=== PATIENT | male | born 1950 | race Caucasian/White ===

== ENCOUNTER → 2016-08-05 | Outpatient (CLI) | payer MEDICARE, OTHER ==
--- NOTE | 2016-08-11 00:26 | ECWPNPC ---
PATIENT NAME: JUAN VELEZ : 1950 GENDER: MALE VISIT DATE: 08/05/2016 DISCHARGE DATE: 08/05/16924 VISIT LOCKED DATE TIME: PHYSICIAN: CHELLE HSIEH RESOURCE: CHELLE HSIEH REASON FOR APPOINTMENT 1. FOLLOWUP-BACK HISTORY OF PRESENT ILLNESS HISTORY OF PRESENT ILLNESS: HERE FOR ROUTINE F/U OF CHRONIC LBP .DOING VERY WELL.RATING PAIN VAS 2/10.REPORTS INTERMITTENT PAIN W LIFTING. PAIN THE PATIENT DESCRIBES THE PAIN... FALL RISK SCREENING: SCREENING :NO FALLS IN THE PAST YEAR CURRENT MEDICATIONS TAKING LISINOPRIL 20 20 MG TABLET 1 TAB ORAL BID TAKING OMEPRAZOLE 20MG _ TABLET ORAL ONCE DAILY TAKING FISH OIL 1000 MG CAPSULE 1 CAPSULE ORALLY TWICE A DAY TAKING ALEVE 220 MG CAPSULE 2 TABS ORALLY TWICE A DAY NEEDED TAKING AMLODIPINE BESYLATE 10 MG TABLET 1 TABLET ORALLY ONCE A DAY TAKING METOPROLOL SUCCINATE ER 25 MG TABLET EXTENDED RELEASE 24 HOUR 1 TABLET ORALLY ONCE A DAY TAKING HYDROCHLOROTHIAZIDE 12.5 MG CAPSULE 1 CAPSULE ORALLY ONCE A DAY NOT-TAKING TRAMADOL HCL 50 MG TABLET ORALLY DIRECTED MEDICATION LIST REVIEWED AND RECONCILED WITH THE PATIENT PAST MEDICAL HISTORY HIGH BLOOD PRESSURE REFLUX SOCIAL HISTORY TOBACCO USE ARE YOU A:NONSMOKER LEARNING BARRIERS / SPECIAL NEEDS ORIENTED TO PLAN OF CARE: PATIENT, PAIN MANAGEMENT PATIENT, ORIENTED TO PLAN OF CARE: PATIENT, PAIN MANAGEMENT PATIENT. NEW PATIENT PAIN DIARY TODAY'S VISITNOTES FROM 0-10, WHAT LEVEL IS YOUR PAIN TODAY?0 PAIN CLINIC PFS, CLERGY, PUBLIC HEALTH REFERRALS PFS REFERRAL NEEDED?NO CLERGY REFERRAL NEEDED?NO PUBLIC HEALTH REFERRAL NEEDED?NO WAS THE PROVIDER NOTIFIED OF ANY PERTINENT INFO?NO PFS REFERRAL NEEDED?NO CLERGY REFERRAL NEEDED?NO PUBLIC HEALTH REFERRAL NEEDED?NO WAS THE PROVIDER NOTIFIED OF ANY PERTINENT INFO?NO REVIEW OF SYSTEMS CONSTITUTIONAL: ANY CHANGE IN YOUR MEDICAL CONDITION? NO . CHILLS NO . FEVER NO . INFECTION: DO YOU HAVE NEW INFECTIONS? NO . DO YOU HAVE HISTORY OF MRSA? NO . MUSCULOSKELETAL: ANY NEW PATTERNS OF PAIN OR NUMBNESS? NO . GASTROENTEROLOGY: ANY NEW CHANGE IN BOWEL CONTROL? NO . GENITOURINARY: ANY NEW CHANGE IN BLADDER CONTROL? NO . IS THERE A CHANCE YOU COULD BE ? NO . HEMATOLOGY/LYMPH: DO YOU TAKE ANY BLOOD THINNERS? (FOR EXAMPLE- COUMADIN, PLAVIX, AGGRENOX, PLATEL, PRADAXA, OR XARELTO) NO . WHEN WAS YOUR LAST DOSE? DATE: TIME: . NEUROLOGY: HAVE YOU FALLEN IN THE PAST 6 MONTHS? NO . ANY NEW EXTREMITY NUMBNESS OR WEAKNESS? NO . CARDIOLOGY: DO YOU HAVE A PACEMAKER OR DEFIBRILLATOR? YES 2 LEAD PACER . RESPIRATORY: HAVE YOU BEEN SICK IN THE PAST WEEK? NO . FEVER NO . FLU LIKE SYMPTOMS? NO . COUGH NO . INTEGUMENTARY: DO YOU HAVE ANY RASHES OR OPEN SORES? NO . ALLERGIC/IMMUNO: ARE YOU ALLERGIC TO SHELLFISH OR IV DYE? NO . ANY NEW ALLERGIES? NO . PSYCHIATRIC: DO YOU HAVE THOUGHTS OF HURTING YOURSELF OR SOMEONE ELSE? NO . ARE YOU ABUSED, NEGLECTED, OR IN AN UNSAFE ENVIRONMENT? NO . ENDOCRINOLOGY: ARE YOU DIABETIC? NO . OTHER: DO YOU NEED ANY PRESCRIPTIONS? NO . IF YES, PLEASE LIST: ____ . ANY NEW PROBLEMS WITH YOUR MEDICATIONS? NO . WHEN DID YOU LAST EAT? ____ . WHEN DID YOU LAST DRINK? ____ . WHAT DID YOU LAST DRINK? ____ . NAME OF PERSON DRIVING YOU HOME? ____ . DO YOU HAVE ANY OTHER QUESTIONS OR CONCERNS NO . REVIEWED BY: PROVIDER: CHELLE LEIVA . VITAL SIGNS WT 172 LBS, HT 69 IN, BMI 25.40 INDEX, BP 116/77 MM HG, HR 68 /MIN, RR 16 /MIN, TEMP 97.3 F, OXYGEN SAT % 96, NA INITIALS TL 0849, REVIEWED BY: KG. EXAMINATION GENERAL EXAMINATION: HEENT:HEAD:, NORMOCEPHALIC, EYES:, EYES NORMAL, NOSE:, NOSE CLEAR, THROAT: NORMAL. LUNGS:LUNG SOUNDS ARE CLEAR. HEART:HEART RATE REGULAR. ABDOMEN:SOFT AND NOT TENDER, NON-DISTENDED. MUSCULOSKELETAL:*. LUMBAR SACRAL SPINEMUSCLE STRENGTH TESTING 5/5 BILATERAL, , PALPATION: NEGATIVE FOR PAIN OVER L/S SPINE. NEGATIVE FOR PAIN OVER L/S PARSPINALS. SKIN:NORMAL, NO RASH. NEUROLOGIC EXAM:ALERT AND ORIENTED X 3, DTRS 1-2+ IN ALL 4 EXTREMITIES, DENIES UPPER EXTREMETIES SENSORY LOSS, DENIES LOWER EXTREMETIES SENSORY LOSS. ASSESSMENTS MYOFASCIAL PAIN - M79.1 (PRIMARY) CHRONIC LEFT-SIDED LOW BACK PAIN WITHOUT SCIATICA - M54.5 SPONDYLOSIS OF LUMBAR REGION WITHOUT MYELOPATHY OR RADICULOPATHY - M47.816 FOLLOW UP PT WILL CALL ELECTRONICALLY SIGNED BY ABBIE SANCHEZ ON 08/05/2016 AT 09:24 AM EST DISCLAIMER : THIS IS A VISIT SUMMARY EXTRACTED FROM THE [employer] CHART. IT IS NOT A COPY OF THE [employer] PROGRESS NOTE. REY
== END ==
LOC: M PAIN 08:40
PROVIDERS: ATTEND Nurse Practitioner Family
DX: Z09 Encounter for follow-up examination after completed treatment for conditions other than malignant neoplasm (principal); M79.1 Myalgia; G89.29 Other chronic pain; M54.5 Low back pain; M47.816 Spondylosis without myelopathy or radiculopathy, lumbar region; I10 Essential (primary) hypertension; K21.9 Gastro-esophageal reflux disease without esophagitis; Z79.1 Long term (current) use of non-steroidal anti-inflammatories (NSAID); Z79.899 Other long term (current) drug therapy

== ENCOUNTER → 2016-09-24 | Outpatient (CLI) | payer OTHER ==
--- NOTE | 2016-09-24 23:59 | ECWPNPC ---
PATIENT NAME: JUAN VELEZ : 1950 GENDER: MALE VISIT DATE: 09/24/2016 DISCHARGE DATE: 09/24/16 1059 VISIT LOCKED DATE TIME: PHYSICIAN: CHELLE HSIEH RESOURCE: CHELLE HSIEH REASON FOR APPOINTMENT 1. BACK HISTORY OF PRESENT ILLNESS HISTORY OF PRESENT ILLNESS: HERE ON URGENT BASIS FOR 3 WEEK HX OF INCREASING LBP.PAIN AGGREVATED BY CERTAIN MOVEMENTS.PAIN IS WORSE IN AFTERNOON.PAIN RELIEVED SOMEWHAT WITH APPLICATION OF HEAT AND ADVIL.DESCRIBES PAIN INTERMITTENT LEFT LOW BACK STABBING AND SHOOTING.RATING PAIN VAS 7/10. PAIN THE PATIENT DESCRIBES THE PAIN... FALL RISK SCREENING: SCREENING :NO FALLS IN THE PAST YEAR CURRENT MEDICATIONS TAKING LISINOPRIL 20 20 MG TABLET 1 TAB ORAL BID TAKING OMEPRAZOLE 20MG _ TABLET ORAL ONCE DAILY TAKING FISH OIL 1000 MG CAPSULE 1 CAPSULE ORALLY TWICE A DAY TAKING ALEVE 220 MG CAPSULE 2 TABS ORALLY TWICE A DAY NEEDED TAKING AMLODIPINE BESYLATE 10 MG TABLET 1 TABLET ORALLY ONCE A DAY TAKING METOPROLOL SUCCINATE ER 25 MG TABLET EXTENDED RELEASE 24 HOUR 1 TABLET ORALLY ONCE A DAY TAKING HYDROCHLOROTHIAZIDE 12.5 MG CAPSULE 1 CAPSULE ORALLY ONCE A DAY TAKING TRAVATAN TAKING OPHTHALMIC IRRIGATION SOLUTION - SOLUTION OPHTHALMIC NOT-TAKING TRAMADOL HCL 50 MG TABLET ORALLY DIRECTED MEDICATION LIST REVIEWED AND RECONCILED WITH THE PATIENT PAST MEDICAL HISTORY HIGH BLOOD PRESSURE REFLUX SOCIAL HISTORY GENERAL: TOBACCO USE ARE YOU A:NONSMOKER LEARNING BARRIERS / SPECIAL NEEDS ORIENTED TO PLAN OF CARE: PATIENT, PAIN MANAGEMENT PATIENT, ORIENTED TO PLAN OF CARE: PATIENT, PAIN MANAGEMENT PATIENT. NEW PATIENT PAIN DIARY TODAY'S VISITNOTES FROM 0-10, WHAT LEVEL IS YOUR PAIN TODAY?0 PAIN CLINIC PFS, CLERGY, PUBLIC HEALTH REFERRALS PFS REFERRAL NEEDED?NO CLERGY REFERRAL NEEDED?NO PUBLIC HEALTH REFERRAL NEEDED?NO WAS THE PROVIDER NOTIFIED OF ANY PERTINENT INFO?NO PFS REFERRAL NEEDED?NO CLERGY REFERRAL NEEDED?NO PUBLIC HEALTH REFERRAL NEEDED?NO WAS THE PROVIDER NOTIFIED OF ANY PERTINENT INFO?NO REVIEW OF SYSTEMS CONSTITUTIONAL: ANY CHANGE IN YOUR MEDICAL CONDITION? [place] /GOING TO [facility] TOMORROW FOR LASER SURGERY . RECENT ILLNESS DENIES . CHILLS NO . FEVER NO . WEIGHT LOSS DENIES . INFECTION: DO YOU HAVE NEW INFECTIONS? NO . DO YOU HAVE HISTORY OF MRSA? NO . MUSCULOSKELETAL: ANY NEW PATTERNS OF PAIN OR NUMBNESS? NO . GASTROENTEROLOGY: ANY NEW CHANGE IN BOWEL CONTROL? NO . GENITOURINARY: ANY NEW CHANGE IN BLADDER CONTROL? NO . IS THERE A CHANCE YOU COULD BE ? NO . HEMATOLOGY/LYMPH: DO YOU TAKE ANY BLOOD THINNERS? (FOR EXAMPLE- COUMADIN, PLAVIX, AGGRENOX, PLATEL, PRADAXA, OR XARELTO) NO . WHEN WAS YOUR LAST DOSE? DATE: TIME: . NEUROLOGY: HAVE YOU FALLEN IN THE PAST 6 MONTHS? NO . ANY NEW EXTREMITY NUMBNESS OR WEAKNESS? NO . CARDIOLOGY: DO YOU HAVE A PACEMAKER OR DEFIBRILLATOR? YES . CHEST PAIN DENIES . SHORTNESS OF BREATH DENIES . RESPIRATORY: HAVE YOU BEEN SICK IN THE PAST WEEK? NO . FEVER NO . FLU LIKE SYMPTOMS? NO . COUGH NO, DENIES . SHORTNESS OF BREATH DENIES . INTEGUMENTARY: DO YOU HAVE ANY RASHES OR OPEN SORES? NO . ALLERGIC/IMMUNO: ARE YOU ALLERGIC TO SHELLFISH OR IV DYE? NO . ANY NEW ALLERGIES? NO . PSYCHIATRIC: DO YOU HAVE THOUGHTS OF HURTING YOURSELF OR SOMEONE ELSE? NO . ARE YOU ABUSED, NEGLECTED, OR IN AN UNSAFE ENVIRONMENT? NO . ENDOCRINOLOGY: ARE YOU DIABETIC? NO . OTHER: DO YOU NEED ANY PRESCRIPTIONS? NO . IF YES, PLEASE LIST: ____ . ANY NEW PROBLEMS WITH YOUR MEDICATIONS? NO . WHEN DID YOU LAST EAT? ____ . WHEN DID YOU LAST DRINK? ____ . WHAT DID YOU LAST DRINK? ____ . NAME OF PERSON DRIVING YOU HOME? ____ . DO YOU HAVE ANY OTHER QUESTIONS OR CONCERNS NO . REVIEWED BY: PROVIDER: CHELLE LEIVA . VITAL SIGNS WT 175 LBS, HT 69 IN, BMI 25.84 INDEX, BP 145/84 MM HG, HR 63 /MIN, RR 16 /MIN, TEMP 97.0 F, OXYGEN SAT % 97, NA INITIALS TL 1011. EXAMINATION GENERAL EXAMINATION: LUNGS:LUNG SOUNDS ARE CLEAR. HEART:HEART RATE REGULAR. MUSCULOSKELETAL:*, MUSCLE STRENGTH TESTING 5/5 BILATERAL LOWER EXTREMITIES., PALPATION: POSITIVE FOR PAIN OVER LEFT L4/5-L5/S1 FACET. POSITIVE FOR PAIN OVER LEFT L/S PARASPINALS.. DIAGNOSTIC:MRI L/S [id number]--REVIEWED.. ASSESSMENTS CHRONIC LEFT-SIDED LOW BACK PAIN WITHOUT SCIATICA - M54.5 (PRIMARY) SPONDYLOSIS OF LUMBAR REGION WITHOUT MYELOPATHY OR RADICULOPATHY - M47.816 TREATMENT CHRONIC LEFT-SIDED LOW BACK PAIN WITHOUT SCIATICA LUMBAR FACET CHELLE CASILLAS 09/24/2016 10:51:35 AM > LEFT L4/5-L5/S1-THERAPEUTIC FACET BLOCK SPONDYLOSIS OF LUMBAR REGION WITHOUT MYELOPATHY OR RADICULOPATHY LUMBAR FACET THERAPEUTICBARCHELLE ANDRADE 09/24/2016 10:51:35 AM > LEFT L4/5-L5/S1-THERAPEUTIC FACET BLOCK PROCEDURE CODES FA211 ESTABILISHED PATIENT [facility] FACILITY CHARGE DISPOSITION & COMMUNICATION FOLLOW UP 2WK POST (REASON: LEFT L4/5-L5/S1 THERAPEUTIC FACET BLOCK) ELECTRONICALLY SIGNED BY ABBIE SANCHEZ ON 09/24/2016 AT 11:46 AM EST DISCLAIMER : THIS IS A VISIT SUMMARY EXTRACTED FROM THE [employer] CHART. IT IS NOT A COPY OF THE [employer] PROGRESS NOTE. REY
== END ==
LOC: M PAIN 09:40
PROVIDERS: ATTEND Nurse Practitioner Family
DX: Z09 Encounter for follow-up examination after completed treatment for conditions other than malignant neoplasm (principal); G89.29 Other chronic pain; M54.5 Low back pain; M47.816 Spondylosis without myelopathy or radiculopathy, lumbar region; I10 Essential (primary) hypertension; K21.9 Gastro-esophageal reflux disease without esophagitis; H40.9 Unspecified glaucoma; Z79.1 Long term (current) use of non-steroidal anti-inflammatories (NSAID); Z79.899 Other long term (current) drug therapy

== ENCOUNTER → 2016-10-16 | Outpatient (CLI) | payer OTHER ==
[~2016-10-16] MED LIST: BUPIVACAINE HCL 0.25% 30 ML VIAL As Ordered ONE; ISOVUE-M 300 61% 15ML VIAL (Q9967) As Ordered ONE; LIDOCAINE 1% SDV INJ 30 ML VIAL As Ordered ONE; TRIAMCINOLONE ACETONIDE SUSP 40 MG/ML VIAL (J3301) As Ordered ONE
--- NOTE | 2016-10-16 14:05 | REP ---
PARTIAL LUMBAR SPINE SERIES: Three views. HISTORY: Facet block for pain. 15 seconds of fluoroscopy time is reported. FINDINGS: A sequence of three fluoroscopically obtained last image hold spot radiographs of the lumbar spine document needle position and contrast injection for facet injection procedure. Signed by Shahab Barba MD 10/16/2016 02:20 P
--- NOTE | 2016-10-22 02:04 | ECWPNPC ---
PATIENT NAME: JUAN VELEZ : 1950 GENDER: MALE VISIT DATE: 10/16/2016 DISCHARGE DATE: 10/16/16 1152 VISIT LOCKED DATE TIME: PHYSICIAN: SAURABH JACOBS RESOURCE: SAURABH JACOBS REASON FOR APPOINTMENT 1. THERAPEUTIC FACET HISTORY OF PRESENT ILLNESS HISTORY OF PRESENT ILLNESS: PAIN THE PATIENT DESCRIBES THE PAIN... FALL RISK SCREENING: SCREENING :NO FALLS IN THE PAST YEAR CURRENT MEDICATIONS TAKING LISINOPRIL 20 20 MG TABLET 1 TAB ORAL BID, NOTES: 10-16-16629 TAKING OMEPRAZOLE 20MG _ TABLET ORAL ONCE DAILY, NOTES: 10-16-16629 TAKING FISH OIL 1000 MG CAPSULE 1 CAPSULE ORALLY TWICE A DAY, NOTES: 10-16-16629 TAKING ALEVE 220 MG CAPSULE 2 TABS ORALLY TWICE A DAY NEEDED, NOTES: COUPLE DAYS AGO TAKING AMLODIPINE BESYLATE 10 MG TABLET 1 TABLET ORALLY ONCE A DAY, NOTES: 10-15-162099 TAKING METOPROLOL SUCCINATE ER 25 MG TABLET EXTENDED RELEASE 24 HOUR 1 TABLET ORALLY ONCE A DAY, NOTES: 10-16-16629 TAKING HYDROCHLOROTHIAZIDE 12.5 MG CAPSULE 1 CAPSULE ORALLY ONCE A DAY, NOTES: 10-16-16629 TAKING TRAVATAN , NOTES: 10-16-16629 TAKING OPHTHALMIC IRRIGATION SOLUTION - SOLUTION OPHTHALMIC , NOTES: 10-16-16629 NOT-TAKING TRAMADOL HCL 50 MG TABLET ORALLY DIRECTED MEDICATION LIST REVIEWED AND RECONCILED WITH THE PATIENT PAST MEDICAL HISTORY HIGH BLOOD PRESSURE REFLUX ALLERGIES N.K.D.A. SOCIAL HISTORY GENERAL: TOBACCO USE ARE YOU A:NONSMOKER LEARNING BARRIERS / SPECIAL NEEDS ORIENTED TO PLAN OF CARE: PATIENT, PAIN MANAGEMENT PATIENT, ORIENTED TO PLAN OF CARE: PATIENT, PAIN MANAGEMENT PATIENT. NEW PATIENT PAIN DIARY TODAY'S VISITNOTES FROM 0-10, WHAT LEVEL IS YOUR PAIN TODAY?0 PAIN CLINIC PFS, CLERGY, PUBLIC HEALTH REFERRALS PFS REFERRAL NEEDED?NO CLERGY REFERRAL NEEDED?NO PUBLIC HEALTH REFERRAL NEEDED?NO WAS THE PROVIDER NOTIFIED OF ANY PERTINENT INFO?NO PFS REFERRAL NEEDED?NO CLERGY REFERRAL NEEDED?NO PUBLIC HEALTH REFERRAL NEEDED?NO WAS THE PROVIDER NOTIFIED OF ANY PERTINENT INFO?NO REVIEW OF SYSTEMS CONSTITUTIONAL: ANY CHANGE IN YOUR MEDICAL CONDITION? NO . CHILLS NO . FEVER NO . INFECTION: DO YOU HAVE NEW INFECTIONS? NO . DO YOU HAVE HISTORY OF MRSA? NO . MUSCULOSKELETAL: ANY NEW PATTERNS OF PAIN OR NUMBNESS? NO . GASTROENTEROLOGY: ANY NEW CHANGE IN BOWEL CONTROL? NO . GENITOURINARY: ANY NEW CHANGE IN BLADDER CONTROL? NO . IS THERE A CHANCE YOU COULD BE ? NO . HEMATOLOGY/LYMPH: DO YOU TAKE ANY BLOOD THINNERS? (FOR EXAMPLE- COUMADIN, PLAVIX, AGGRENOX, PLATEL, PRADAXA, OR XARELTO) NO . WHEN WAS YOUR LAST DOSE? DATE: TIME: . NEUROLOGY: HAVE YOU FALLEN IN THE PAST 6 MONTHS? NO . ANY NEW EXTREMITY NUMBNESS OR WEAKNESS? NO . CARDIOLOGY: DO YOU HAVE A PACEMAKER OR DEFIBRILLATOR? YES, PACEMAKER YEAR AGO . RESPIRATORY: HAVE YOU BEEN SICK IN THE PAST WEEK? NO . FEVER NO . FLU LIKE SYMPTOMS? NO . COUGH NO . INTEGUMENTARY: DO YOU HAVE ANY RASHES OR OPEN SORES? NO . ALLERGIC/IMMUNO: ARE YOU ALLERGIC TO SHELLFISH OR IV DYE? NO . ANY NEW ALLERGIES? NO . PSYCHIATRIC: DO YOU HAVE THOUGHTS OF HURTING YOURSELF OR SOMEONE ELSE? NO . ARE YOU ABUSED, NEGLECTED, OR IN AN UNSAFE ENVIRONMENT? NO . ENDOCRINOLOGY: ARE YOU DIABETIC? NO . OTHER: DO YOU NEED ANY PRESCRIPTIONS? NO . IF YES, PLEASE LIST: ____ . ANY NEW PROBLEMS WITH YOUR MEDICATIONS? NO . WHEN DID YOU LAST EAT? 10-15-16 PM . WHEN DID YOU LAST DRINK? 10-16-16 0630 . WHAT DID YOU LAST DRINK? WATER . NAME OF PERSON DRIVING YOU HOME? MAURIZIO NICOLE . DO YOU HAVE ANY OTHER QUESTIONS OR CONCERNS NO . REVIEWED BY: PROVIDER: . VITAL SIGNS WT 175 LBS, HT 69 IN, BMI 25.84 INDEX, BP 128/83 MM HG, HR 95 /MIN, RR 16 /MIN, TEMP 98.3 F, OXYGEN SAT % 95%, NA INITIALS SC 09:21, REVIEWED BY: CM. ASSESSMENTS SPONDYLOSIS WITHOUT MYELOPATHY OR RADICULOPATHY, LUMBAR REGION - M47.816 (PRIMARY) SPONDYLOSIS WITHOUT MYELOPATHY OR RADICULOPATHY, LUMBOSACRAL REGION - M47.817 PROCEDURES PN LUMBAR FACET BLOCK THERAPEUTIC PRE PROCEDURE DIAGNOSIS : LUMBAR SPONDYLOSIS, LUMBOSACRAL SPONDYLOSIS POST PROCEDURE DIAGNOSIS : LUMBAR SPONDYLOSIS, LUMBOSACRAL SPONDYLOSIS PROCEDURE LEFT L4-L5 AND LEFT L5-S1 FACET THERAPEUTIC BLOCK SURGEON DR. SAURABH JACOBS PRESSURE VESSEL INSPECTOR NONE ANESTHESIA LOCAL PRE PROCEDURE NOTE THE PATIENT HAS A HISTORY OF CHRONIC LOW BACK PAIN. I EVALUATE THE PATIENT AND REVIEWED THE CHART. I WENT OVER THE RISKS, ALTERNATIVES, AND BENEFITS ASSOCIATED WITH THIS PROCEDURE. THE PATIENT WOULD LIKE TO PROCEED AND GIVE CONSENT TO PERFORMED THE PROCEDURE. THE PATIENT DENIES UNEXPLAINABLE WEIGHT LOSS, FEVER, CHILLS, OR NEW CHANGES IN URINARY OR BOWEL CONTROL DESCRIPTION OF PROCEDURE THE PATIENT WAS BROUGHT TO THE PROCEDURE ROOM AND PLACED IN THE PRONE POSITION. THE LUMBOSACRAL AREA WAS CLEANED WITH CHLORAPREP SOLUTION AND DRAPED ASEPTICALLY. THE PROCEDURE WAS DONE UNDER STERILE CONDITIONS. I CHECKED LATERALITY AND THE LEVEL WHERE THE PROCEDURE WAS GOING TO BE PERFORMED WITH THE PATIENT AND THE SUPPORTING STAFF AT THE MOMENT OF THE TIME OUT IN THE PROCEDURE ROOM. UNDER FLUOROSCOPIC GUIDANCE, THE TARGET POINT WAS SELECTED AT THE LEFT L4-L5 AND LEFT L5-S1 FACET JOINT. TARGET POINT WAS SELECTED AFTER LATERAL ROTATION AND TILT OF THE MAGNIFIER OF THE C-ARM. LIDOCAINE 0.5% WAS USED TO NUMB THE SKIN AND THE SUBCUTANEOUS TISSUE BELOW IT. SPINAL NEEDLES, 22-GAUGE, WERE ADVANCED UNDER FLUOROSCOPIC GUIDANCE AND FOLLOWING PATIENT FEEDBACK UNTIL THE TARGETS WERE TOUCHED. THE POSITION OF THE NEEDLES WAS VERIFIED WITH AP AND LATERAL VIEWS. AFTER PROPER POSITION OF THE NEEDLES WAS ACHIEVED, ISOVUE-M DYE 30% 0.1 ML WAS INJECTED SHOWING ADEQUATE SPREAD OF THE DYE. THEN A SOLUTION OF 1.9 ML OF BUPIVACAINE 0.125% OF KENALOG 10 MG WAS INJECTED AT EACH SITE. THERE WAS NO EVIDENCE OF BLOOD, PARESTHESIA OR CEREBROSPINAL FLUID DURING THE PROCEDURE. THE PATIENT WAS SENT TO THE RECOVERY ROOM. THE PATIENT WAS MOVING THE EXTREMITIES AND DOING WELL. THERE WAS NO COMPLICATION DURING THE PROCEDURE. FLUOROSCOPY TIME WAS 15 SECONDS POST PROCEDURE NOTE THE PATIENT WILL BE SEEN IN A FOLLOW UP IN THE NEXT FEW WEEKS. INSTRUCTIONS WERE GIVEN, QUESTIONS WERE ANSWERED, AND THE PATIENT EXPRESSED UNDERSTANDING AND AGREES WITH THE PLAN. INSTRUCTIONS WERE GIVEN, QUESTIONS WERE ANSWERED, PATIENT REPORTS UNDERSTANDING AND AGREES WITH THE PLAN. I, KERRY MENDEZ, DOCUMENTED THE ABOVE INFORMATION ACTING A SCRIBE FOR DR. JACOBS. I HAVE REVIEWED THE ABOVE DOCUMENT, WRITTEN BY KERRY MENDEZ SCRIBSushma AND I VERIFY THAT IT IS ACCURATE. DIAGNOSTIC IMAGING [facility] FACET BLOCK (PAIN)[id number] PROCEDURE CODES 52821 INJ PARAVERT F JNT L/S 1 LEV 36603 INJ PARAVERT F JNT L/S 2 LEV 6045F RADXPS IN END [id number] PXD DISPOSITION & COMMUNICATION FOLLOW UP 3 WEEKS ELECTRONICALLY SIGNED BY SAURABH JACOBS MD ON 10/21/2016 AT 05:26 PM EDT DISCLAIMER : THIS IS A VISIT SUMMARY EXTRACTED FROM THE [employer] CHART. IT IS NOT A COPY OF THE [employer] PROGRESS NOTE. MTDD
== END ==
LOC: M PAIN 09:00
PROVIDERS: ATTEND Anesthesiology
DX: G89.29 Other chronic pain (principal); M47.816 Spondylosis without myelopathy or radiculopathy, lumbar region; M47.817 Spondylosis without myelopathy or radiculopathy, lumbosacral region; Z79.899 Other long term (current) drug therapy; I10 Essential (primary) hypertension; K21.9 Gastro-esophageal reflux disease without esophagitis
CPT/HCPCS: 64493; 64494; J3301; Q9967

== ENCOUNTER → 2016-10-30 | Outpatient (CLI) | payer OTHER ==
--- NOTE | 2016-10-31 01:28 | ECWPNPC ---
PATIENT NAME: JUAN VELEZ : 1950 GENDER: MALE VISIT DATE: 10/30/2016 DISCHARGE DATE: 10/30/16950 VISIT LOCKED DATE TIME: PHYSICIAN: CHELLE HSIEH RESOURCE: CHELLE HSIEH REASON FOR APPOINTMENT 1. POST FACET HISTORY OF PRESENT ILLNESS HISTORY OF PRESENT ILLNESS: HERE FOR POST PROCEDURE F/U.HAD LEFT LUMBAR FACET BLOCK 10-16-16.HAD NO IMPROVEMENT POST PROCEDURE AND SOME AGGREVATION .RATING PAIN VAS 8/10.HAD A 4 DAY STAY IN ICU LAST MONTH FOR GI ISSUES DUE TO TAKING 12 ALEVE PER DAY.REVIEWED MRI L/S SPINE AND PREVIOUS PROCEDURES TRIALED.DESCRIBES LEFT LOW BACK SHARP AND STABBING PAIN.DISCUSSED TREATMENT OPTIONS. PAIN THE PATIENT DESCRIBES THE PAIN... FALL RISK SCREENING: SCREENING :NO FALLS IN THE PAST YEAR CURRENT MEDICATIONS TAKING LISINOPRIL 20 20 MG TABLET 1 TAB ORAL BID, NOTES: 10-16-16629 TAKING OMEPRAZOLE 20MG _ TABLET ORAL ONCE DAILY, NOTES: 10-16-16629 TAKING FISH OIL 1000 MG CAPSULE 1 CAPSULE ORALLY TWICE A DAY, NOTES: 10-16-16629 TAKING AMLODIPINE BESYLATE 10 MG TABLET 1 TABLET ORALLY ONCE A DAY, NOTES: 10-15-162099 TAKING METOPROLOL SUCCINATE ER 25 MG TABLET EXTENDED RELEASE 24 HOUR 1 TABLET ORALLY ONCE A DAY, NOTES: 10-16-16629 TAKING HYDROCHLOROTHIAZIDE 12.5 MG CAPSULE 1 CAPSULE ORALLY ONCE A DAY, NOTES: 10-16-16629 TAKING TRAVATAN 1 GTT EACH EYE TWICE DAILY, NOTES: 10-16-16629 NOT-TAKING ALEVE 220 MG CAPSULE 2 TABS ORALLY TWICE A DAY NEEDED, NOTES: NOT TAKING R/T GI DISCOMFORT NOT-TAKING TRAMADOL HCL 50 MG TABLET ORALLY DIRECTED DISCONTINUED OPHTHALMIC IRRIGATION SOLUTION - SOLUTION OPHTHALMIC , NOTES: 10-16-16629 MEDICATION LIST REVIEWED AND RECONCILED WITH THE PATIENT PAST MEDICAL HISTORY HIGH BLOOD PRESSURE REFLUX GLAUCOMA ALLERGIES N.K.D.A. SOCIAL HISTORY GENERAL: PAIN CLINIC PFS, CLERGY, PUBLIC HEALTH REFERRALS CLERGY REFERRAL NEEDED?NO WAS THE PROVIDER NOTIFIED OF ANY PERTINENT INFO?NO PFS REFERRAL NEEDED?NO PUBLIC HEALTH REFERRAL NEEDED?NO PATIENT: ____. REVIEW OF SYSTEMS CONSTITUTIONAL: ANY CHANGE IN YOUR MEDICAL CONDITION? NO . CHILLS NO . FEVER NO . INFECTION: DO YOU HAVE NEW INFECTIONS? NO . DO YOU HAVE HISTORY OF MRSA? NO . MUSCULOSKELETAL: ANY NEW PATTERNS OF PAIN OR NUMBNESS? NO . GASTROENTEROLOGY: ANY NEW CHANGE IN BOWEL CONTROL? NO . GENITOURINARY: ANY NEW CHANGE IN BLADDER CONTROL? NO . IS THERE A CHANCE YOU COULD BE ? NO . HEMATOLOGY/LYMPH: DO YOU TAKE ANY BLOOD THINNERS? (FOR EXAMPLE- COUMADIN, PLAVIX, AGGRENOX, PLATEL, PRADAXA, OR XARELTO) NO . WHEN WAS YOUR LAST DOSE? DATE: TIME: . NEUROLOGY: HAVE YOU FALLEN IN THE PAST 6 MONTHS? NO . ANY NEW EXTREMITY NUMBNESS OR WEAKNESS? NO . CARDIOLOGY: DO YOU HAVE A PACEMAKER OR DEFIBRILLATOR? YES . RESPIRATORY: HAVE YOU BEEN SICK IN THE PAST WEEK? NO . FEVER NO . FLU LIKE SYMPTOMS? NO . COUGH NO . INTEGUMENTARY: DO YOU HAVE ANY RASHES OR OPEN SORES? NO . ALLERGIC/IMMUNO: ARE YOU ALLERGIC TO SHELLFISH OR IV DYE? NO . ANY NEW ALLERGIES? NO . PSYCHIATRIC: DO YOU HAVE THOUGHTS OF HURTING YOURSELF OR SOMEONE ELSE? NO . ARE YOU ABUSED, NEGLECTED, OR IN AN UNSAFE ENVIRONMENT? NO . ENDOCRINOLOGY: ARE YOU DIABETIC? NO . OTHER: DO YOU NEED ANY PRESCRIPTIONS? NO . IF YES, PLEASE LIST: ____ . ANY NEW PROBLEMS WITH YOUR MEDICATIONS? NO . WHEN DID YOU LAST EAT? ____ . WHEN DID YOU LAST DRINK? ____ . WHAT DID YOU LAST DRINK? ____ . NAME OF PERSON DRIVING YOU HOME? ____ . DO YOU HAVE ANY OTHER QUESTIONS OR CONCERNS NO . REVIEWED BY: PROVIDER: CHELLE LEIVA . VITAL SIGNS WT 179 LBS, HT 69 IN, BMI 26.43 INDEX, BP 134/86 MM HG, HR 71 /MIN, RR 16 /MIN, TEMP 98.6 F, OXYGEN SAT % 94%, NA INITIALS SC09:02, REVIEWED BY: MLF. EXAMINATION GENERAL EXAMINATION: LUNGS:LUNG SOUNDS ARE CLEAR. HEART:HEART RATE REGULAR. MUSCULOSKELETAL:*, MUSCLE STRENGTH TESTING 5/5 BILATERAL LOWER EXTREMITIES., PALPATION: POSITIVE FOR PAIN OVER LEFT L4/5-L5/S1 FACET. POSITIVE FOR PAIN OVER LEFT L/S PARASPINALS.. DIAGNOSTIC:MRI L/S [id number]-REVIEWED.. 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 MATERIAL WAS PRINTED,LUMBAR EPIDURAL INJECTION: YOUR PROCEDURE MATERIAL WAS PRINTED, OPTION FOR EPIDURAL INJECTIONS WERE DISCUSSED WITH THE PATIENT. FDA CONCERNS AND WARNING WERE REVIEWED INCLUDING THE RISK OF BLEEDING, RISK OF INFECTION, RISK OF INCREASED PAIN OR NEURALGIA, AND RISK OF PARALYSIS. PATIENT'S QUESTIONS WERE ANSWERED AND HE/SHE WISHES TO MOVE FORWARD WITH EPIDURAL INJECTION., ISTOP REGISTRY REVIEWED AND DEMNOSTRATES COMPLLIANCE. BRINGS IN MEDICATIONS WHICH IS APPROPRIATE FOR WHAT WAS DISPENSED. RECENT URINE TOXICOLOGY REVIEWED. NO UNAUTHORIZED MEDICATIONS. NO ILLICIT SUBSTANCES AND PRESCRIBED MEDICATIONS WERE PRESENT. , RISKS AND BENEFITS OF NARCOTIC/OPIOD MEDICATIONS WERE REVIEWED WITH PATIENT - THIS INCLUDES BUT IS NOT LIMITED TO RISK OF DEPENDANCE/DEVELOPMENT OF ADDICTION, MOOD DISTURBANCE AND DEPRESSION, OSTEOPOROSIS, HORMONAL AND LABIDAL CHANGES, RESPIRATORY DEPRESSION AND . PATIENT IS ADVISED NOT TO DRIVE WHILE ON THESE MEDICATIONS. LUMBAR HERNIATED DISC CAUDAL/LUMBAR EPIDURALCHELLE HSIEH 10/30/2016 9:27:36 AM > L4/5/ [facility] PRE[facility]IC[facility] PA[facility] CLINIC TEACHING: MEDICATIONS HYDROCODONE/ACET PRINTED HANDOUT GIVEN/REVIEWED WITH PT.. PROCEDURE CODES FA211 ESTABILISHED PATIENT [facility] CHARGE DISPOSITION & COMMUNICATION FOLLOW UP 2WK POST (REASON: L4/5 LESI) ELECTRONICALLY SIGNED BY ABBIE SANCHEZ ON 10/30/2016 AT 01:30 PM EDT DISCLAIMER : THIS IS A VISIT SUMMARY EXTRACTED FROM THE [facility] CHART. IT IS NOT A COPY OF THE [facility] PROGRESS NOTE. REY
== END ==
LOC: M PAIN 08:40
PROVIDERS: ATTEND Nurse Practitioner Family
DX: M79.1 Myalgia (principal); M47.816 Spondylosis without myelopathy or radiculopathy, lumbar region; M51.26 Other intervertebral disc displacement, lumbar region; G89.29 Other chronic pain; Z79.899 Other long term (current) drug therapy; I10 Essential (primary) hypertension; K21.9 Gastro-esophageal reflux disease without esophagitis; H40.9 Unspecified glaucoma

== ENCOUNTER → 2016-11-19 | Outpatient (CLI) | payer OTHER ==
[~2016-11-19] MED LIST changes: -BUPIVACAINE HCL 0.25% 30 ML VIAL As Ordered ONE; -TRIAMCINOLONE ACETONIDE SUSP 40 MG/ML VIAL (J3301) As Ordered ONE; +methylPREDNISolone SUSP 40 MG/ML (DEPO-medrol) VIAL (J1030) As Ordered ONE
--- NOTE | 2016-11-19 17:56 | REP ---
FLUOROSCOPIC GUIDED SPINAL INJECTION: The films were reviewed with Dr. Campos. The patient has a history of back pain. The portable C-Arm is provided in the OR for Dr. Weir for fluoroscopic guidance. Three intraoperative fluoroscopic spot films were obtained for needle placement verification for lumbar epidural injection. The films are on the PACs system and are available for review. 31 seconds of fluoroscopy time was utilized for this procedure. Reviewed by LILLI Mendoza 11/20/2016 09:24 AEdited and Signed by Chalino Campos MD 11/21/2016 04:58 P
--- NOTE | 2016-11-25 00:10 | ECWPNPC ---
PATIENT NAME: JUAN VELEZ : 1950 GENDER: MALE VISIT DATE: 11/19/2016 DISCHARGE DATE: 11/19/16 1158 VISIT LOCKED DATE TIME: PHYSICIAN: SAURABH JACOBS RESOURCE: SAURABH JACOBS REASON FOR APPOINTMENT 1. LE HISTORY OF PRESENT ILLNESS HISTORY OF PRESENT ILLNESS: PAIN THE PATIENT DESCRIBES THE PAIN... FALL RISK SCREENING: SCREENING :NO FALLS IN THE PAST YEAR CURRENT MEDICATIONS TAKING LISINOPRIL 20 20 MG TABLET 1 TAB ORAL BID, NOTES: 11-19-16629 TAKING OMEPRAZOLE 20MG _ TABLET ORAL ONCE DAILY, NOTES: 11-19-16629 TAKING FISH OIL 1000 MG CAPSULE 1 CAPSULE ORALLY TWICE A DAY, NOTES: 11-19-16629 TAKING AMLODIPINE BESYLATE 10 MG TABLET 1 TABLET ORALLY ONCE A DAY, NOTES: 11-18-162099 TAKING METOPROLOL SUCCINATE ER 25 MG TABLET EXTENDED RELEASE 24 HOUR 1 TABLET ORALLY ONCE A DAY, NOTES: 11-19-16629 TAKING HYDROCHLOROTHIAZIDE 12.5 MG CAPSULE 1 CAPSULE ORALLY ONCE A DAY, NOTES: 11-19-16629 TAKING TRAVATAN 1 GTT EACH EYE TWICE DAILY, NOTES: 11-18-162099 TAKING NORCO 5-325 MG TABLET 1 TABLET NEEDED ORALLY EVERY 6 HRS PRN MDD4, NOTES: 11-17-16 NOT-TAKING ALEVE 220 MG CAPSULE 2 TABS ORALLY TWICE A DAY NEEDED, NOTES: NOT TAKING R/T GI DISCOMFORT DISCONTINUED TRAMADOL HCL 50 MG TABLET ORALLY DIRECTED MEDICATION LIST REVIEWED AND RECONCILED WITH THE PATIENT PAST MEDICAL HISTORY HIGH BLOOD PRESSURE REFLUX GLAUCOMA ALLERGIES N.K.D.A. SOCIAL HISTORY GENERAL: PAIN CLINIC PFS, CLERGY, PUBLIC HEALTH REFERRALS CLERGY REFERRAL NEEDED?NO WAS THE PROVIDER NOTIFIED OF ANY PERTINENT INFO?NO PFS REFERRAL NEEDED?NO PUBLIC HEALTH REFERRAL NEEDED?NO PATIENT: ____. REVIEW OF SYSTEMS CONSTITUTIONAL: ANY CHANGE IN YOUR MEDICAL CONDITION? NO . CHILLS NO . FEVER NO . INFECTION: DO YOU HAVE NEW INFECTIONS? NO . DO YOU HAVE HISTORY OF MRSA? NO . MUSCULOSKELETAL: ANY NEW PATTERNS OF PAIN OR NUMBNESS? NO . GASTROENTEROLOGY: ANY NEW CHANGE IN BOWEL CONTROL? NO . GENITOURINARY: ANY NEW CHANGE IN BLADDER CONTROL? NO . IS THERE A CHANCE YOU COULD BE ? NO . HEMATOLOGY/LYMPH: DO YOU TAKE ANY BLOOD THINNERS? (FOR EXAMPLE- COUMADIN, PLAVIX, AGGRENOX, PLATEL, PRADAXA, OR XARELTO) NO . WHEN WAS YOUR LAST DOSE? DATE: TIME: . NEUROLOGY: HAVE YOU FALLEN IN THE PAST 6 MONTHS? NO . ANY NEW EXTREMITY NUMBNESS OR WEAKNESS? NO . CARDIOLOGY: DO YOU HAVE A PACEMAKER OR DEFIBRILLATOR? YES, PACEMAKER . RESPIRATORY: HAVE YOU BEEN SICK IN THE PAST WEEK? NO . FEVER NO . FLU LIKE SYMPTOMS? NO . COUGH NO . INTEGUMENTARY: DO YOU HAVE ANY RASHES OR OPEN SORES? NO . ALLERGIC/IMMUNO: ARE YOU ALLERGIC TO SHELLFISH OR IV DYE? NO . ANY NEW ALLERGIES? NO . PSYCHIATRIC: DO YOU HAVE THOUGHTS OF HURTING YOURSELF OR SOMEONE ELSE? NO . ARE YOU ABUSED, NEGLECTED, OR IN AN UNSAFE ENVIRONMENT? NO . ENDOCRINOLOGY: ARE YOU DIABETIC? NO . OTHER: DO YOU NEED ANY PRESCRIPTIONS? YES . IF YES, PLEASE LIST: NORCO 5-325MG . ANY NEW PROBLEMS WITH YOUR MEDICATIONS? NO . WHEN DID YOU LAST EAT? 11-18-16 PM . WHEN DID YOU LAST DRINK? 11-19-16 0630 . WHAT DID YOU LAST DRINK? WATER . NAME OF PERSON DRIVING YOU HOME? BROOKE LOYA . DO YOU HAVE ANY OTHER QUESTIONS OR CONCERNS NO . REVIEWED BY: PROVIDER: . VITAL SIGNS WT 179 LBS, HT 69 IN, BMI 26.43 INDEX, BP 120/84 MM HG, HR 60 /MIN, RR 16 /MIN, TEMP 98.3 F, OXYGEN SAT % 97%, NA INITIALS SC 10:07, REVIEWED BY: CM. ASSESSMENTS INTERVERTEBRAL DISC DISORDERS WITH RADICULOPATHY, LUMBAR REGION - M51.16 (PRIMARY) PROCEDURES PRE PROCEDURE DIAGNOSIS LUMBAR RADICULOPATHY, LUMBAR DISC DISORDER WITH RADICULOPATHY POST PROCEDURE DIAGNOSIS LUMBAR RADICULOPATHY , LUMBAR DISC DISORDER WITH RADICULOPATHY PROCEDURE LUMBAR EPIDURAL STEROID INJECTION UNDER FLUOROSCOPIC GUIDANCE SURGEON DR. SAURABH JACOBS COMPREHENSIVE OPHTHALMOLOGIST NONE ANESTHESIA LOCAL PRE PROCEDURE NOTE THE PATIENT HAS A HISTORY OF CHRONIC LOW BACK PAIN. I EVALUATE THE PATIENT AND REVIEWED THE CHART. I WENT OVER THE RISKS, ALTERNATIVES, AND BENEFITS ASSOCIATED WITH THIS PROCEDURE. THE PATIENT WOULD LIKE TO PROCEED AND GIVE CONSENT TO PERFORMED THE PROCEDURE. THE PATIENT DENIES UNEXPLAINABLE WEIGHT LOSS, FEVER, CHILLS, OR NEW CHANGES IN URINARY OR BOWEL CONTROL. DESCRIPTION OF PROCEDURE THE PATIENT WAS BROUGHT TO THE PROCEDURE ROOM AND PLACED IN THE PRONE POSITION. THE LUMBOSACRAL AREA WAS CLEANED WITH BETADINE SOLUTION AND DRAPED ASEPTICALLY. THE PROCEDURE WAS DONE UNDER STERILE CONDITIONS. I CHECKED LATERALITY AND THE LEVEL WHERE THE PROCEDURE WAS GOING TO BE PERFORMED WITH THE PATIENT AND THE SUPPORTING STAFF AT THE MOMENT OF THE TIME OUT IN THE PROCEDURE ROOM. UNDER FLUOROSCOPIC GUIDANCE, THE TARGET POINT WAS SELECTED AT THE INTERLAMINAR LEVEL OF L4-L5. LIDOCAINE WAS USED TO NUMB THE SKIN AND THE SUBCUTANEOUS TISSUE BELOW IT. EPIDURAL TUOHY NEEDLE, 17-GAUGE, WAS ADVANCED UNDER FLUOROSCOPIC GUIDANCE AND FOLLOWING PATIENT FEEDBACK UNTIL THE EPIDURAL SPACE WAS REACHED, 7 CM DEEP INTO THE SKIN BY THE LOSS OF RESISTANCE TECHNIQUE. ISOVUE M DYE 30%, 0.25 ML, WAS INJECTED SHOWING ADEQUATE SPREAD OF THE DYE. THEN, A SOLUTION OF 3 ML OF NORMAL SALINE WITH DEPO-MEDROL 60 MG WAS INJECTED SLOWLY FOLLOWING PATIENT FEEDBACK. THERE WAS NO EVIDENCE OF BLOOD, PARESTHESIA OR CEREBROSPINAL FLUID DURING THE PROCEDURE. THE PATIENT WAS SENT TO THE RECOVERY ROOM. THE PATIENT WAS MOVING THE EXTREMITIES AND DOING WELL. THERE WAS NO COMPLICATION DURING THE PROCEDURE. FLUOROSCOPY TIME WAS 31 SECONDS. POST PROCEDURE NOTE THE PATIENT WILL BE SEEN IN A FOLLOW UP IN THE NEXT FEW WEEKS. INSTRUCTIONS WERE GIVEN, QUESTIONS WERE ANSWERED, AND THE PATIENT EXPRESSED UNDERSTANDING AND AGREES WITH THE PLAN. I, KERRY MENDEZ, DOCUMENTED THE ABOVE INFORMATION ACTING A SCRIBE FOR DR. JACOBS. I HAVE REVIEWED THE ABOVE DOCUMENT, WRITTEN BY KERRY MENDEZ SCRIBSushma AND I VERIFY THAT IT IS ACCURATE. DIAGNOSTIC IMAGING [facility] FLUORO GUIDE SPINE INJECTION (PAIN)[id number] PROCEDURE CODES 42306 LUMBAR/SACRAL W/ IMAGING 6045F RADXPS IN END [id number] PXD DISPOSITION & COMMUNICATION FOLLOW UP 3 WEEKS ELECTRONICALLY SIGNED BY SAURABH JACOBS MD ON 11/24/2016 AT 12:20 PM EDT DISCLAIMER : THIS IS A VISIT SUMMARY EXTRACTED FROM THE [employer] CHART. IT IS NOT A COPY OF THE [employer] PROGRESS NOTE. REY
== END ==
LOC: M PAIN 10:20
PROVIDERS: ATTEND Anesthesiology
DX: M54.5 Low back pain (principal); M51.16 Intervertebral disc disorders with radiculopathy, lumbar region; G89.29 Other chronic pain; Z79.891 Long term (current) use of opiate analgesic; Z79.899 Other long term (current) drug therapy; I10 Essential (primary) hypertension; K21.9 Gastro-esophageal reflux disease without esophagitis
CPT/HCPCS: 62323; J1030; Q9967

== ENCOUNTER → 2016-12-03 | Outpatient (CLI) | payer OTHER ==
--- NOTE | 2016-12-19 01:13 | ECWPNPC ---
PATIENT NAME: JUAN VELEZ : 1950 GENDER: MALE VISIT DATE: 12/03/2016 DISCHARGE DATE: 12/03/16 1028 VISIT LOCKED DATE TIME: PHYSICIAN: CHELLE HSIEH RESOURCE: CHELLE HSIEH HISTORY OF PRESENT ILLNESS HISTORY OF PRESENT ILLNESS: PAIN THE PATIENT DESCRIBES THE PAIN... PT STATES HE HAD LUMBAR EPIDURAL 10/2016 FOR LEFT LOW BACK PAIN. PT STATES HE HAD NO IMPROVEMENT WITH PAIN POST PROCEDURE. PT STATES PREPROCEDURAL PAIN WAS 8/10. POST PROCEDURE PAIN 5/10, WHICH INCREASED IN SEVERITY THE DAYS WENT ON.DR. 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 FALL RISK SCREENING: SCREENING :NO FALLS IN THE PAST YEAR CURRENT MEDICATIONS TAKING LISINOPRIL 20 20 MG TABLET 1 TAB ORAL BID TAKING OMEPRAZOLE 20MG _ TABLET ORAL ONCE DAILY TAKING FISH OIL 1000 MG CAPSULE 1 CAPSULE ORALLY TWICE A DAY TAKING AMLODIPINE BESYLATE 10 MG TABLET 1 TABLET ORALLY ONCE A DAY TAKING METOPROLOL SUCCINATE ER 25 MG TABLET EXTENDED RELEASE 24 HOUR 1 TABLET ORALLY ONCE A DAY TAKING HYDROCHLOROTHIAZIDE 12.5 MG CAPSULE 1 CAPSULE ORALLY ONCE A DAY TAKING TRAVATAN 1 GTT EACH EYE TWICE DAILY TAKING NORCO 5-325 MG TABLET 1 TABLET NEEDED ORALLY EVERY 6 HRS PRN MDD4 NOT-TAKING ALEVE 220 MG CAPSULE 2 TABS ORALLY TWICE A DAY NEEDED, NOTES: NOT TAKING R/T GI DISCOMFORT MEDICATION LIST REVIEWED AND RECONCILED WITH THE PATIENT PAST MEDICAL HISTORY HIGH BLOOD PRESSURE REFLUX GLAUCOMA ALLERGIES N.K.D.A. SURGICAL HISTORY PACEMAKER 04/2016 HOSPITALIZATION/MAJOR DIAGNOSTIC PROCEDURE GASTRITIS 2012 REVIEW OF SYSTEMS CONSTITUTIONAL: ANY CHANGE IN YOUR MEDICAL CONDITION? NO . CHILLS NO . FEVER NO . INFECTION: DO YOU HAVE NEW INFECTIONS? NO . DO YOU HAVE HISTORY OF MRSA? NO . MUSCULOSKELETAL: ANY NEW PATTERNS OF PAIN OR NUMBNESS? NO . GASTROENTEROLOGY: ANY NEW CHANGE IN BOWEL CONTROL? NO . GENITOURINARY: ANY NEW CHANGE IN BLADDER CONTROL? NO . IS THERE A CHANCE YOU COULD BE ? NO . HEMATOLOGY/LYMPH: DO YOU TAKE ANY BLOOD THINNERS? (FOR EXAMPLE- COUMADIN, PLAVIX, AGGRENOX, PLATEL, PRADAXA, OR XARELTO) NO . WHEN WAS YOUR LAST DOSE? DATE: TIME: . NEUROLOGY: HAVE YOU FALLEN IN THE PAST 6 MONTHS? NO . ANY NEW EXTREMITY NUMBNESS OR WEAKNESS? NO . CARDIOLOGY: DO YOU HAVE A PACEMAKER OR DEFIBRILLATOR? NO . RESPIRATORY: HAVE YOU BEEN SICK IN THE PAST WEEK? NO . FEVER NO . FLU LIKE SYMPTOMS? NO . COUGH NO . INTEGUMENTARY: DO YOU HAVE ANY RASHES OR OPEN SORES? NO . ALLERGIC/IMMUNO: ARE YOU ALLERGIC TO SHELLFISH OR IV DYE? NO . ANY NEW ALLERGIES? NO . PSYCHIATRIC: DO YOU HAVE THOUGHTS OF HURTING YOURSELF OR SOMEONE ELSE? NO . ARE YOU ABUSED, NEGLECTED, OR IN AN UNSAFE ENVIRONMENT? NO . ENDOCRINOLOGY: ARE YOU DIABETIC? NO . OTHER: DO YOU NEED ANY PRESCRIPTIONS? NO. TO DISCUSS WITH Derek HSIEH. . IF YES, PLEASE LIST: ____ . ANY NEW PROBLEMS WITH YOUR MEDICATIONS? NO . WHEN DID YOU LAST EAT? ____ . WHEN DID YOU LAST DRINK? ____ . WHAT DID YOU LAST DRINK? ____ . NAME OF PERSON DRIVING YOU HOME? ____ . DO YOU HAVE ANY OTHER QUESTIONS OR CONCERNS NO . REVIEWED BY: PROVIDER: CHELLE LEIVA . VITAL SIGNS WT 180.0 LBS, HT 69 IN, BMI 26.58 INDEX, BP 154/92 MM HG, HR 60 /MIN, RR 18 /MIN, TEMP 97.0 F, OXYGEN SAT % 96%, SAFE IN ENV? (Y/N) Y, NA INITIALS TL 0909, REVIEWED BY: EM. EXAMINATION GENERAL EXAMINATION: LUNGS:LUNG SOUNDS ARE CLEAR. HEART:HEART RATE REGULAR. MUSCULOSKELETAL:*, MUSCLE STRENGTH TESTING 5/5 BILATERAL LOWER EXTREMITIES., PALPATION: POSITIVE FOR PAIN OVER LEFT L4/5-L5/S1 FACET. POSITIVE FOR PAIN OVER LEFT L/S PARASPINALS.. DIAGNOSTIC:MRI L/S [id number]-REVIEWED.. ASSESSMENTS MYOFASCIAL PAIN - M79.1 (PRIMARY) CHRONIC LEFT-SIDED LOW BACK PAIN WITHOUT SCIATICA - M54.5 SPONDYLOSIS OF LUMBAR REGION WITHOUT MYELOPATHY OR RADICULOPATHY - M47.816 LUMBAR HERNIATED DISC - M51.26 TREATMENT MYOFASCIAL PAIN REFILL NORCO TABLET, 5-325 MG, 1 TABLET NEEDED, ORALLY, EVERY 6 HRS PRN MDD4, 30 DAY(S), 30, REFILLS 0 NOTES: REFER TO [facility] DEPT NEUROSURGERY,LUMBAR EPIDURAL INJECTION: YOUR PROCEDURE MATERIAL WAS PRINTED. LUMBAR HERNIATED DISC TRANSFORAMINAL CHELLE BURGESS 12/03/2016 10:07:43 AM > LEFT L4/5 OR L5/S1 TRANSFORAMINAL STEROID INJECTION PREVENTIVE MEDICINE PRINTED LE PT HANDOUT, REVIEWED WITH PT, GAVE TO PT. PT EXPRESSED UNDERSTANDING. DISCUSSED THE DIFFERENCE OF TRANSFORAMINAL AND LE. PROCEDURE CODES FA211 ESTABILISHED PATIENT [facility] CHARGE DISPOSITION & COMMUNICATION FOLLOW UP 2WK POST (REASON: LEFT L4/5 TRANSFORAMINAL) ELECTRONICALLY SIGNED BY ABBIE SANCHEZ ON 12/16/2016 AT 02:06 PM EDT DISCLAIMER : THIS IS A VISIT SUMMARY EXTRACTED FROM THE [employer] CHART. IT IS NOT A COPY OF THE [employer] PROGRESS NOTE. MTDD
== END ==
LOC: M PAIN 09:00
PROVIDERS: ATTEND Nurse Practitioner Family
DX: G89.29 Other chronic pain (principal); M79.1 Myalgia; M47.816 Spondylosis without myelopathy or radiculopathy, lumbar region; M51.26 Other intervertebral disc displacement, lumbar region; I10 Essential (primary) hypertension; L21.9 Seborrheic dermatitis, unspecified; Z79.899 Other long term (current) drug therapy

== ENCOUNTER → 2017-01-23 | Outpatient (CLI) | payer OTHER ==
[~2017-01-23] MED LIST changes: +BUPIVACAINE HCL 0.25% 30 ML VIAL As Ordered ONE; +MIDAZOLAM INJ 2 MG/2 ML VIAL (J2250) As Ordered ONE; +dexameTHASONE 10 MG/1 ML VIAL PRES.FREE (J1100) As Ordered ONE; +fentaNYL 100 MCG/2 ML INJECTION (J3010) As Ordered ONE; -methylPREDNISolone SUSP 40 MG/ML (DEPO-medrol) VIAL (J1030) As Ordered ONE
--- NOTE | 2017-01-23 16:33 | REP ---
Partial lumbar spine series: Six views: History: Left transforaminal lumbar epidural injection for pain. 1 minute 3 seconds of fluoroscopy time is reported. Findings: A sequence of six fluoroscopically obtained intraprocedural last image hold spot radiographs document various needle positions and contrast injections associated with injection procedure. Signed by Shahab Barba MD 01/24/2017 09:29 A
--- NOTE | 2017-01-28 23:12 | ECWPNPC ---
PATIENT NAME: JUAN VELEZ : 1950 GENDER: MALE VISIT DATE: 01/23/2017 DISCHARGE DATE: 01/23/17 1523 VISIT LOCKED DATE TIME: PHYSICIAN: SAURABH JACOBS RESOURCE: SAURABH JACOBS REASON FOR APPOINTMENT 1. TRANSFORAMINAL HISTORY OF PRESENT ILLNESS HISTORY OF PRESENT ILLNESS: PAIN THE PATIENT DESCRIBES THE PAIN... FALL RISK SCREENING: SCREENING :NO FALLS IN THE PAST YEAR CURRENT MEDICATIONS TAKING LISINOPRIL 20 20 MG TABLET 1 TAB ORAL BID, NOTES: 01-23-17629 TAKING OMEPRAZOLE 20MG _ TABLET ORAL ONCE DAILY, NOTES: 01-23-17629 TAKING FISH OIL 1000 MG CAPSULE 1 CAPSULE ORALLY TWICE A DAY, NOTES: 01-23-17629 TAKING AMLODIPINE BESYLATE 10 MG TABLET 1 TABLET ORALLY ONCE A DAY, NOTES: 01-22-172099 TAKING METOPROLOL SUCCINATE ER 25 MG TABLET EXTENDED RELEASE 24 HOUR 1 TABLET ORALLY ONCE A DAY, NOTES: 01-23-17629 TAKING HYDROCHLOROTHIAZIDE 12.5 MG CAPSULE 1 CAPSULE ORALLY ONCE A DAY, NOTES: 01-23-17629 TAKING TRAVATAN 1 GTT EACH EYE TWICE DAILY, NOTES: 01-22-172099 TAKING NORCO 5-325 MG TABLET 1 TABLET NEEDED ORALLY EVERY 6 HRS PRN MDD4, NOTES: 01-23-17629 NOT-TAKING ALEVE 220 MG CAPSULE 2 TABS ORALLY TWICE A DAY NEEDED, NOTES: NOT TAKING R/T GI DISCOMFORT MEDICATION LIST REVIEWED AND RECONCILED WITH THE PATIENT PAST MEDICAL HISTORY HIGH BLOOD PRESSURE REFLUX GLAUCOMA ALLERGIES N.K.D.A. SURGICAL HISTORY PACEMAKER 04/2016 HOSPITALIZATION/MAJOR DIAGNOSTIC PROCEDURE GASTRITIS 2012 REVIEW OF SYSTEMS REVIEWED BY: PROVIDER: . CONSTITUTIONAL: ANY CHANGE IN YOUR MEDICAL CONDITION? NO . CHILLS NO . FEVER NO . INFECTION: DO YOU HAVE NEW INFECTIONS? NO . DO YOU HAVE HISTORY OF MRSA? NO . MUSCULOSKELETAL: ANY NEW PATTERNS OF PAIN OR NUMBNESS? NO, BUT HAVING SO MUCH PAIN CAN'T HARDLY WALK. &NBSP;. GASTROENTEROLOGY: ANY NEW CHANGE IN BOWEL CONTROL? NO . GENITOURINARY: ANY NEW CHANGE IN BLADDER CONTROL? NO . IS THERE A CHANCE YOU COULD BE ? NO . HEMATOLOGY/LYMPH: DO YOU TAKE ANY BLOOD THINNERS? (FOR EXAMPLE- COUMADIN, PLAVIX, AGGRENOX, PLATEL, PRADAXA, OR XARELTO) NO . WHEN WAS YOUR LAST DOSE? DATE: TIME: . NEUROLOGY: HAVE YOU FALLEN IN THE PAST 6 MONTHS? NO . ANY NEW EXTREMITY NUMBNESS OR WEAKNESS? NO . CARDIOLOGY: DO YOU HAVE A PACEMAKER OR DEFIBRILLATOR? YES, PACER/DEFIRILLATOR . RESPIRATORY: HAVE YOU BEEN SICK IN THE PAST WEEK? NO . FEVER NO . FLU LIKE SYMPTOMS? NO . COUGH NO . INTEGUMENTARY: DO YOU HAVE ANY RASHES OR OPEN SORES? NO . ALLERGIC/IMMUNO: ARE YOU ALLERGIC TO SHELLFISH OR IV DYE? NO . ANY NEW ALLERGIES? NO . PSYCHIATRIC: DO YOU HAVE THOUGHTS OF HURTING YOURSELF OR SOMEONE ELSE? NO . ARE YOU ABUSED, NEGLECTED, OR IN AN UNSAFE ENVIRONMENT? NO . ENDOCRINOLOGY: ARE YOU DIABETIC? NO . OTHER: DO YOU NEED ANY PRESCRIPTIONS? NO . IF YES, PLEASE LIST: ____ . ANY NEW PROBLEMS WITH YOUR MEDICATIONS? NO . WHEN DID YOU LAST EAT? 01-22-17 8PM . WHEN DID YOU LAST DRINK? 01-22-17 8PM . WHAT DID YOU LAST DRINK? WATER . NAME OF PERSON DRIVING YOU HOME? CAORLYN . DO YOU HAVE ANY OTHER QUESTIONS OR CONCERNS YES, HAD A CT MYLOGRAM IN [facility] ON Friday01/20/17 . VITAL SIGNS WT 170.0 LBS, HT 69 IN, BMI 25.10 INDEX, BP 151/87 MM HG, HR 63 /MIN, RR 16 /MIN, TEMP 97.3 F, OXYGEN SAT % 98%, NA INITIALS TL 1127, REVIEWED BY: CM. ASSESSMENTS INTERVERTEBRAL DISC DISORDERS WITH RADICULOPATHY, LUMBAR REGION - M51.16 (PRIMARY) PROCEDURES PN LUMBAR TRANSFORAMINAL BLOCKS PRE PROCEDURE DIAGNOSIS LUMBAR POST LAMINECTOMY PAIN SYNDROME, LUMBAR DISC DISORDER WITH RADICULOPATHY, LUMBOSACRAL RADICULOPATHY, LUMBAR SPINAL STENOSIS POST PROCEDURE DIAGNOSIS LUMBAR POST LAMINECTOMY PAIN SYNDROME, LUMBAR DISC DISORDER WITH RADICULOPATHY, LUMBOSACRAL RADICULOPATHY, LUMBAR SPINAL STENOSIS PROCEDURE LEFT L4 AND L5 TRANSFORAMINAL EPIDURAL STEROID INJECTION UNDER FLUOROSCOPIC GUIDANCE SURGEON DR SAURABH JACOBS FILM FLAT INSPECTOR NONE ANESTHESIA LOCAL PRE PROCEDURE NOTE PATIENT WITH HISTORY OF CHRONIC LOW BACK PAIN. I EVALUATE THE PATIENT AND REVIEWED THE CHART. I WENT OVER THE RISKS, ALTERNATIVES, AND BENEFITS ASSOCIATED WITH THIS PROCEDURE. DUE TO THE PAIN, ANXIETY, AND DISCOMFORT THIS PROCEDURE WILL CAUSE HIM THE PATIENT WANTS IV SEDATION. THE PATIENT WOULD LIKE TO PROCEED AND GIVE CONSENT TO PERFORMED THE PROCEDURE WITH IV SEDATION. THE PATIENT DENIES UNEXPLAINABLE WEIGHT LOSS, FEVER, CHILLS, OR CHANGES IN URINARY OR BOWEL CONTROL DESCRIPTION OF PROCEDURE THE PATIENT WAS BROUGHT TO THE PROCEDURE ROOM AND PLACED IN THE PRONE POSITION. THE LUMBOSACRAL AREA WAS CLEANED WITH BETADINE SOLUTION AND DRAPED ASEPTICALLY. THE PROCEDURE WAS DONE UNDER STERILE CONDITIONS. I CHECKED LATERALITY AND THE LEVEL WHERE THE PROCEDURE WAS GOING TO BE PERFORMED WITH THE PATIENT AND THE SUPPORTING STAFF AT THE MOMENT OF THE TIME OUT IN THE PROCEDURE ROOM. UNDER FLUOROSCOPIC GUIDANCE, TARGETS WERE SELECTED AT THE LEFT TRANSFORAMINAL OPENING OF L4 AND L5. TARGET POINT WAS SELECTED AFTER LATERAL ROTATION AND TILT OF THE MAGNIFIER OF THE C-ARM. LIDOCAINE 0.5% WAS USED TO NUMB THE SKIN AND THE SUBCUTANEOUS TISSUE BELOW IT. AN EPIMED INTRODUCER 18-GAUGE WAS ADVANCED UNTIL WE WENT CLOSE TO THE SELECTED TRANSFORAMINAL OPENINGS. AFTER PROPER POSITION OF THE NEEDLES WAS ACHIEVED, A 22-GAUGE EPIMED NEEDLE WAS PLACED INSIDE OF THE INTRODUCER AND ADVANCED TO THE TRANSFORAMINAL OPENING OF THE SELECTED SITES. WHEN PROPER POSITION OF THE NEEDLE WAS ACHIEVED, ISOVUE M DYE 30%, 0.25 ML, WAS INJECTED SHOWING ADEQUATE SPREAD OF THE DYE. THIS WAS DONE UNDER DIGITAL SUBTRACTION AND ANGIOGRAPHY. THERE WAS NO VASCULAR UPDATE. THEN, A SOLUTION OF 2 ML OF BUPIVACAINE 0.25% AND DEXAMETHASONE 10 MG WAS INJECTED AT EACH SITE. PATIENT RECEIVED VERSED 2 MG AND FENTANYL 100 MCG IV DIVIDED DOSES. FACE TO FACE TIME WAS 25 MINUTES. THERE WAS NO EVIDENCE OF BLOOD, PARESTHESIA OR CEREBROSPINAL FLUID DURING THE PROCEDURE. THE PATIENT WAS SENT TO THE RECOVERY ROOM. THE PATIENT WAS MOVING THE EXTREMITIES AND DOING WELL. THERE WAS NO COMPLICATION DURING THE PROCEDURE. FLUOROSCOPY TIME WAS 1 MINUTE 3 SECONDS POST PROCEDURE NOTE THE PROCEDURE DONE WAS DISCUSSED WITH THE PATIENT. THE PATIENT WILL BE SEEN IN A FOLLOW UP IN THE NEXT FEW WEEKS. INSTRUCTIONS WERE GIVEN, QUESTIONS WERE ANSWERED, AND THE PATIENT EXPRESSED UNDERSTANDING AND AGREES WITH THE PLAN. I, KERRY MENDEZ, DOCUMENTED THE ABOVE INFORMATION ACTING A SCRIBE FOR DR. JACOBS. I HAVE REVIEWED THE ABOVE DOCUMENT, WRITTEN BY KERRY HIGBY SCRIBE AND I VERIFY THAT IT IS ACCURATE DIAGNOSTIC IMAGING [facility] FLUORO GUIDE SPINE INJECTION (PAIN)[id number] PROCEDURE CODES 6045F RADXPS IN END [id number] PXD 34378 MOD SED SAME PHYS/QHP 5/>YRS 07[address] MOD SED SAME PHYS/[place] [address] INJ FORAMEN EPIDURAL L/S 32703 INJ FORAMEN EPIDURAL ADD-ON DISPOSITION & COMMUNICATION FOLLOW UP 3 WEEKS ELECTRONICALLY SIGNED BY SAURABH JACOBS MD ON 01/28/2017 AT 09:51 PM EDT DISCLAIMER : THIS IS A VISIT SUMMARY EXTRACTED FROM THE [employer] CHART. IT IS NOT A COPY OF THE [employer] PROGRESS NOTE. MTDD
== END ==
LOC: M PAIN 11:40
PROVIDERS: ATTEND Anesthesiology
DX: G89.29 Other chronic pain (principal); M51.16 Intervertebral disc disorders with radiculopathy, lumbar region; M54.5 Low back pain; Z79.891 Long term (current) use of opiate analgesic; Z79.899 Other long term (current) drug therapy; I10 Essential (primary) hypertension; K21.0 Gastro-esophageal reflux disease with esophagitis; H40.9 Unspecified glaucoma
CPT/HCPCS: 64483; 64484; 99152; 99153; J1100; J2250; J3010; Q9967

== ENCOUNTER → 2017-02-12 | Outpatient (CLI) | payer OTHER ==
--- NOTE | 2017-02-12 23:10 | ECWPNPC ---
PATIENT NAME: JUAN VELEZ : 1950 GENDER: MALE VISIT DATE: 02/12/2017 DISCHARGE DATE: 02/12/17 1043 VISIT LOCKED DATE TIME: PHYSICIAN: CHELLE HSIEH RESOURCE: CHELLE HSIEH REASON FOR APPOINTMENT 1. POST TRANSFORAMINAL HISTORY OF PRESENT ILLNESS HISTORY OF PRESENT ILLNESS: PAIN THE PATIENT DESCRIBES THE PAIN... THE PATIENT DESCRIBES THE PAIN... HERE FOR POST PROCEDURE F/U.HAD LEFT L4/5 TRANSFORAMINAL EPIDURAL STEROID INJECTION ON 01-23-17.REPORTS NO IMPROVEMENT IN PAIN POST PROCEDURE.[facility] IN [place] WHO IS SUGGESTING RIGHT LUMBAR RADIOFREQUENCY.PT STATES HE HAD LUMBAR EPIDURAL 10/2016 FOR LEFT LOW BACK PAIN. PT STATES HE HAD NO IMPROVEMENT WITH PAIN POST PROCEDURE. PT STATES PREPROCEDURAL PAIN WAS 8/10. POST PROCEDURE PAIN 5/10, WHICH INCREASED IN SEVERITY THE DAYS WENT ON.DR. 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 FALL RISK SCREENING: SCREENING :NO FALLS IN THE PAST YEAR CURRENT MEDICATIONS TAKING LISINOPRIL 20 20 MG TABLET 1 TAB ORAL BID TAKING OMEPRAZOLE 20MG _ TABLET ORAL ONCE DAILY TAKING FISH OIL 1000 MG CAPSULE 1 CAPSULE ORALLY TWICE A DAY TAKING AMLODIPINE BESYLATE 10 MG TABLET 1 TABLET ORALLY ONCE A DAY TAKING METOPROLOL SUCCINATE ER 25 MG TABLET EXTENDED RELEASE 24 HOUR 1 TABLET ORALLY ONCE A DAY TAKING HYDROCHLOROTHIAZIDE 12.5 MG CAPSULE 1 CAPSULE ORALLY ONCE A DAY TAKING TRAVATAN 1 GTT EACH EYE TWICE DAILY TAKING NORCO 5-325 MG TABLET 1 TABLET NEEDED ORALLY EVERY 6 HRS PRN MDD4 TAKING ROSUVASTATIN CALCIUM 5 MG TABLET 1 TABLET ORALLY ONCE A DAY NOT-TAKING ALEVE 220 MG CAPSULE 2 TABS ORALLY TWICE A DAY NEEDED, NOTES: NOT TAKING R/T GI DISCOMFORT MEDICATION LIST REVIEWED AND RECONCILED WITH THE PATIENT PAST MEDICAL HISTORY HIGH BLOOD PRESSURE REFLUX GLAUCOMA ALLERGIES N.K.D.A. SURGICAL HISTORY PACEMAKER 04/2016 HOSPITALIZATION/MAJOR DIAGNOSTIC PROCEDURE GASTRITIS 2013 REVIEW OF SYSTEMS REVIEWED BY: PROVIDER: CHELLE LEIVA . CONSTITUTIONAL: ANY CHANGE IN YOUR MEDICAL CONDITION? NO . CHILLS NO . FEVER NO . INFECTION: DO YOU HAVE NEW INFECTIONS? NO . DO YOU HAVE HISTORY OF MRSA? NO . MUSCULOSKELETAL: ANY NEW PATTERNS OF PAIN OR NUMBNESS? NO . GASTROENTEROLOGY: ANY NEW CHANGE IN BOWEL CONTROL? NO . GENITOURINARY: ANY NEW CHANGE IN BLADDER CONTROL? NO . IS THERE A CHANCE YOU COULD BE ? NO . HEMATOLOGY/LYMPH: DO YOU TAKE ANY BLOOD THINNERS? (FOR EXAMPLE- COUMADIN, PLAVIX, AGGRENOX, PLATEL, PRADAXA, OR XARELTO) NO . WHEN WAS YOUR LAST DOSE? DATE: TIME: . NEUROLOGY: HAVE YOU FALLEN IN THE PAST 6 MONTHS? NO . ANY NEW EXTREMITY NUMBNESS OR WEAKNESS? NO . CARDIOLOGY: DO YOU HAVE A PACEMAKER OR DEFIBRILLATOR? YES, PACEMAKER . RESPIRATORY: HAVE YOU BEEN SICK IN THE PAST WEEK? NO . FEVER NO . FLU LIKE SYMPTOMS? NO . COUGH NO . INTEGUMENTARY: DO YOU HAVE ANY RASHES OR OPEN SORES? NO . ALLERGIC/IMMUNO: ARE YOU ALLERGIC TO SHELLFISH OR IV DYE? NO . ANY NEW ALLERGIES? NO . PSYCHIATRIC: DO YOU HAVE THOUGHTS OF HURTING YOURSELF OR SOMEONE ELSE? NO . ARE YOU ABUSED, NEGLECTED, OR IN AN UNSAFE ENVIRONMENT? NO . ENDOCRINOLOGY: ARE YOU DIABETIC? NO . OTHER: DO YOU NEED ANY PRESCRIPTIONS? YES, NORCO . IF YES, PLEASE LIST: ____ . ANY NEW PROBLEMS WITH YOUR MEDICATIONS? NO . WHEN DID YOU LAST EAT? ____ . WHEN DID YOU LAST DRINK? ____ . WHAT DID YOU LAST DRINK? ____ . NAME OF PERSON DRIVING YOU HOME? ____ . DO YOU HAVE ANY OTHER QUESTIONS OR CONCERNS NO . VITAL SIGNS WT 183.0 LBS, HT 69 IN, BMI 27.02 INDEX, BP 120/67 MM HG, HR 66 /MIN, RR 16 /MIN, TEMP 97.2 F, OXYGEN SAT % 96%, SAFE IN ENV? (Y/N) Y, NA INITIALS TL 0950, REVIEWED BY: EM. EXAMINATION GENERAL EXAMINATION: LUNGS:LUNG SOUNDS ARE CLEAR. HEART:HEART RATE REGULAR. MUSCULOSKELETAL:*, MUSCLE STRENGTH TESTING 5/5 BILATERAL LOWER EXTREMITIES., PALPATION: POSITIVE FOR PAIN OVER LEFT L4/5-L5/S1 FACET. POSITIVE FOR PAIN OVER LEFT L/S PARASPINALS.. DIAGNOSTIC:MRI L/S [id number]-[id number].. ASSESSMENTS INTERVERTEBRAL DISC DISORDERS WITH RADICULOPATHY, LUMBAR REGION - M51.16 (PRIMARY) MYOFASCIAL PAIN - M79.1 CHRONIC PRESCRIPTION OPIATE USE - Z79.891 TREATMENT MYOFASCIAL PAIN REFILL NORCO TABLET, 5-325 MG, 1 TABLET NEEDED, ORALLY, Q8H PRN MDD3, 30 DAY(S), 90, REFILLS 0 OTHERS NOTES: LEFT L4/5-L5/S1 DIAGNOSTIC LUMBAR FACET BLOCK. PROCEDURE CODES FA211 ESTABILISHED PATIENT [facility] CHARGE DISPOSITION & COMMUNICATION FOLLOW UP 2WK POST - (REASON: LEFT L4/5-L5/S1 DIAGNOSTIC LUMBAR FACET BLOCK) ELECTRONICALLY SIGNED BY ABBIE SANCHEZ ON 02/12/2017 AT 04:22 PM EDT DISCLAIMER : THIS IS A VISIT SUMMARY EXTRACTED FROM THE [employer] CHART. IT IS NOT A COPY OF THE [employer] PROGRESS NOTE. MTDD
== END ==
LOC: M PAIN 09:40
PROVIDERS: ATTEND Nurse Practitioner Family
DX: G89.29 Other chronic pain (principal); M51.16 Intervertebral disc disorders with radiculopathy, lumbar region; M79.1 Myalgia; I10 Essential (primary) hypertension; K21.9 Gastro-esophageal reflux disease without esophagitis; Z79.899 Other long term (current) drug therapy; Z95.0 Presence of cardiac pacemaker

== ENCOUNTER → 2017-03-12 | Outpatient (CLI) | payer OTHER ==
[~2017-03-12] MED LIST changes: -MIDAZOLAM INJ 2 MG/2 ML VIAL (J2250) As Ordered ONE; -dexameTHASONE 10 MG/1 ML VIAL PRES.FREE (J1100) As Ordered ONE; -fentaNYL 100 MCG/2 ML INJECTION (J3010) As Ordered ONE
--- NOTE | 2017-03-12 12:32 | REP ---
Partial lumbar spine series: Four views . History: Injection procedure for pain. 32 seconds of fluoroscopy time is reported. Findings: A sequence of four fluoroscopically obtained last image hold procedural spot radiographs of the lumbar spine document needle position and contrast injection associated with injection procedure. Signed by Shahab Barba MD 03/12/2017 12:23 P
--- NOTE | 2017-03-16 23:46 | ECWPNPC ---
PATIENT NAME: JUAN VELEZ : 1950 GENDER: MALE VISIT DATE: 03/12/2017 DISCHARGE DATE: 03/12/17 1211 VISIT LOCKED DATE TIME: PHYSICIAN: SAURABH JACOBS RESOURCE: SUARABH JACOBS REASON FOR APPOINTMENT 1. LEFT LFBD L4-L5 L5-S1 #1 HISTORY OF PRESENT ILLNESS HISTORY OF PRESENT ILLNESS: PAIN THE PATIENT DESCRIBES THE PAIN... FALL RISK SCREENING: SCREENING :NO FALLS IN THE PAST YEAR CURRENT MEDICATIONS TAKING OMEPRAZOLE 20MG _ TABLET ORAL ONCE DAILY, NOTES: 03-12-17599 TAKING FISH OIL 1000 MG CAPSULE 1 CAPSULE ORALLY TWICE A DAY, NOTES: 03-12-17599 TAKING AMLODIPINE BESYLATE 10 MG TABLET 1 TABLET ORALLY ONCE A DAY, NOTES: 03-11-172099 TAKING METOPROLOL SUCCINATE ER 25 MG TABLET EXTENDED RELEASE 24 HOUR 1 TABLET ORALLY ONCE A DAY, NOTES: 03-12-17599 TAKING TRAVATAN 1 GTT EACH EYE TWICE DAILY, NOTES: 03-11-172099 TAKING ROSUVASTATIN CALCIUM 5 MG TABLET 1 TABLET ORALLY ONCE A DAY, NOTES: 03-11-172099 TAKING NORCO 5-325 MG TABLET 1 TABLET NEEDED ORALLY Q8H PRN MDD3, NOTES: NONE FOR 3 DAYS TAKING LISINOPRIL-HYDROCHLOROTHIAZIDE 20-12.5 MG TABLET 1 TABLET ORALLY ONCE A DAY, NOTES: 599 TAKING CELEBREX 200 MG CAPSULE 1 CAPSULE WITH FOOD ORALLY ONCE A DAY, NOTES: 3 DAYS AGO TAKING ALEVE 220 MG CAPSULE 2 TABS ORALLY TWICE A DAY NEEDED, NOTES: 2 DAYS AGO DISCONTINUED LISINOPRIL 20 20 MG TABLET 1 TAB ORAL BID DISCONTINUED HYDROCHLOROTHIAZIDE 12.5 MG CAPSULE 1 CAPSULE ORALLY ONCE A DAY MEDICATION LIST REVIEWED AND RECONCILED WITH THE PATIENT PAST MEDICAL HISTORY HIGH BLOOD PRESSURE REFLUX GLAUCOMA ALLERGIES N.K.D.A. REVIEW OF SYSTEMS REVIEWED BY: PROVIDER: . CONSTITUTIONAL: ANY CHANGE IN YOUR MEDICAL CONDITION? NO . CHILLS NO . FEVER NO . INFECTION: DO YOU HAVE NEW INFECTIONS? NO . DO YOU HAVE HISTORY OF MRSA? NO . MUSCULOSKELETAL: ANY NEW PATTERNS OF PAIN OR NUMBNESS? NO . GASTROENTEROLOGY: ANY NEW CHANGE IN BOWEL CONTROL? NO . GENITOURINARY: ANY NEW CHANGE IN BLADDER CONTROL? NO . IS THERE A CHANCE YOU COULD BE ? NO . HEMATOLOGY/LYMPH: DO YOU TAKE ANY BLOOD THINNERS? (FOR EXAMPLE- COUMADIN, PLAVIX, AGGRENOX, PLATEL, PRADAXA, OR XARELTO) NO . WHEN WAS YOUR LAST DOSE? DATE: TIME: . NEUROLOGY: HAVE YOU FALLEN IN THE PAST 6 MONTHS? NO . ANY NEW EXTREMITY NUMBNESS OR WEAKNESS? NO . CARDIOLOGY: DO YOU HAVE A PACEMAKER OR DEFIBRILLATOR? YES, PACEMAKER . RESPIRATORY: HAVE YOU BEEN SICK IN THE PAST WEEK? NO . FEVER NO . FLU LIKE SYMPTOMS? NO . COUGH NO . INTEGUMENTARY: DO YOU HAVE ANY RASHES OR OPEN SORES? NO . ALLERGIC/IMMUNO: ARE YOU ALLERGIC TO SHELLFISH OR IV DYE? NO . ANY NEW ALLERGIES? NO . PSYCHIATRIC: DO YOU HAVE THOUGHTS OF HURTING YOURSELF OR SOMEONE ELSE? NO . ARE YOU ABUSED, NEGLECTED, OR IN AN UNSAFE ENVIRONMENT? NO . ENDOCRINOLOGY: ARE YOU DIABETIC? NO . OTHER: DO YOU NEED ANY PRESCRIPTIONS? NO . IF YES, PLEASE LIST: ____ . ANY NEW PROBLEMS WITH YOUR MEDICATIONS? NO . WHEN DID YOU LAST EAT? 8 6PM . WHEN DID YOU LAST DRINK? 03-11-17 6PM . WHAT DID YOU LAST DRINK? MILK . NAME OF PERSON DRIVING YOU HOME? JUAN PAGE . DO YOU HAVE ANY OTHER QUESTIONS OR CONCERNS NO . VITAL SIGNS WT 176 LBS, HT 69 IN, BMI 25.99 INDEX, BP 145/88 MM HG, HR 92 /MIN, RR 16 /MIN, TEMP 97.3 F, OXYGEN SAT % 97%, NA INITIALS AW 1020, REVIEWED BY: CM. ASSESSMENTS SPONDYLOSIS WITHOUT MYELOPATHY OR RADICULOPATHY, LUMBAR REGION - M47.816 (PRIMARY) SPONDYLOSIS WITHOUT MYELOPATHY OR RADICULOPATHY, LUMBOSACRAL REGION - M47.817 PROCEDURES PN LUMBAR FACET BLOCK DIAGNOSTIC PRE PROCEDURE DIAGNOSIS LUMBAR SPONDYLOSIS, LUMBOSACRAL SPONDYLOSIS POST PROCEDURE DIAGNOSIS LUMBAR SPONDYLOSIS, LUMBOSACRAL SPONDYLOSIS PROCEDURE LEFT L4-L5 AND LEFT L5-S1 FACET BLOCK DIAGNOSTIC NUMBER [address] SAURABH JACOBS STUDIO SALES ASSOCIATE NONE ANESTHESIA LOCAL PRE PROCEDURE NOTE THE PATIENT WITH HISTORY OF CHRONIC LOW BACK PAIN. I EVALUATED THE PATIENT AND REVIEWED THE CHART. I WENT OVER THE RISKS, ALTERNATIVES, AND BENEFITS ASSOCIATED WITH THIS PROCEDURE. THE PATIENT WOULD LIKE TO PROCEED AND GAVE CONSENT TO PERFORM THE PROCEDURE. AGREED WITH THE PATIENT WE ARE DOING THIS PROCEDURE TO DETERMINE IF THE PATIENT IS A CANDIDATE FOR A RADIOFREQUENCY ABLATION OF THE FACETS JOINTS. THE PATIENT DENIES UNEXPLAINABLE WEIGHT LOSS, FEVER, CHILLS, OR NEW CHANGES IN URINARY OR BOWEL CONTROL DESCRIPTION OF PROCEDURE THE PATIENT WAS BROUGHT TO THE PROCEDURE ROOM AND PLACED IN THE PRONE POSITION. THE LUMBOSACRAL AREA WAS CLEANED WITH CHLORAPREP SOLUTION AND DRAPED ASEPTICALLY. THE PROCEDURE WAS DONE UNDER STERILE CONDITIONS. I CHECKED LATERALITY AND THE LEVEL WHERE THE PROCEDURE WAS GOING TO BE PERFORMED WITH THE PATIENT AND THE SUPPORTING STAFF AT THE MOMENT OF THE TIME OUT IN THE PROCEDURE ROOM. UNDER FLUOROSCOPIC GUIDANCE, TARGETS WERE SELECTED AT THE INTERSECTION OF THE LEFT TRANSVERSE PROCESS OF L4, L5 AND ALA OF S1 WITH ITS RESPECTIVE SUPERIOR ARTICULAR PROCESS. LIDOCAINE WAS USED TO NUMB THE SKIN AND THE SUBCUTANEOUS TISSUE BELOW IT. SPINAL NEEDLE, 22-GAUGE WAS ADVANCED UNDER FLUOROSCOPIC GUIDANCE AND FOLLOWING PATIENT FEEDBACK UNTIL THE TARGETS WERE REACHED. POSITION OF THE NEEDLES WAS VERIFIED WITH AP AND LATERAL VIEWS. AFTER PROPER POSITION OF THE NEEDLES WAS ACHIEVED, ISOVUE-M DYE 30% 0.1 ML WAS INJECTED AT EACH SITE SHOWING ADEQUATE SPREAD OF THE DYE. THEN A SOLUTION OF 0.4 ML OF BUPIVACAINE 0.25% WAS INJECTED AT EACH SITE. THERE WAS NO EVIDENCE OF BLOOD, PARESTHESIA OR CEREBROSPINAL FLUID DURING THE PROCEDURE. THE PATIENT WAS SENT TO THE RECOVERY ROOM. THE PATIENT WAS MOVING THE EXTREMITIES AND DOING WELL. THERE WAS NO COMPLICATION DURING THE PROCEDURE. FLUOROSCOPY TIME WAS 32 SECONDS POST PROCEDURE NOTE THE PATIENT WILL DOCUMENT HIS PAIN LEVEL AND RESPONSE TO THIS PROCEDURE EVERY 30 MINUTES. THE PATIENT WILL BE SEEN IN A FOLLOW UP IN THE NEXT FEW WEEKS. FURTHER DETERMINATION FOR HIS CASE WILL BE DONE AT THE NEXT VISIT. INSTRUCTIONS WERE GIVEN, QUESTIONS WERE ANSWERED, AND THE PATIENT EXPRESSED UNDERSTANDING AND AGREED WITH THE PLAN. I RICA MARCELO DOCUMENTED THE ABOVE INFORMATION ACTING A SUPPLY CONTROLLER FOR DR. JACOBS. I HAVE REVIEWED THE ABOVE DOCUMENT WRITTEN BY RICA GOMES AND I VERIFY THAT IT IS ACCURATE. DIAGNOSTIC IMAGING [facility] FACET BLOCK (PAIN)[id number] PROCEDURE CODES 53788 INJ PARAVERT F JNT L/S 1 LEV 64317 INJ PARAVERT F JNT L/S 2 LEV 6045F RADXPS IN END [id number] PXD DISPOSITION & COMMUNICATION FOLLOW UP 3 WEEKS ELECTRONICALLY SIGNED BY SAURABH JACOBS MD ON 03/16/2017 AT 12:50 PM EDT DISCLAIMER : THIS IS A VISIT SUMMARY EXTRACTED FROM THE [employer] CHART. IT IS NOT A COPY OF THE [employer] PROGRESS NOTE. REY
== END ==
LOC: M PAIN 10:45
PROVIDERS: ATTEND Anesthesiology
DX: G89.29 Other chronic pain (principal); M47.816 Spondylosis without myelopathy or radiculopathy, lumbar region; M47.817 Spondylosis without myelopathy or radiculopathy, lumbosacral region; M54.5 Low back pain; Z79.891 Long term (current) use of opiate analgesic; Z79.899 Other long term (current) drug therapy; I10 Essential (primary) hypertension; K21.9 Gastro-esophageal reflux disease without esophagitis
CPT/HCPCS: 64493; 64494; Q9967

== ENCOUNTER → 2017-03-17 | Outpatient (CLI) | payer OTHER ==
--- NOTE | 2017-04-02 00:26 | ECWPNPC ---
PATIENT NAME: JUAN VELEZ : 1950 GENDER: MALE VISIT DATE: 03/17/2017 DISCHARGE DATE: 03/17/17 1644 VISIT LOCKED DATE TIME: PHYSICIAN: SAURABH JACOBS RESOURCE: SAURABH JACOBS REASON FOR APPOINTMENT 1. POST DIAG FACET BLOCK HISTORY OF PRESENT ILLNESS HISTORY OF PRESENT ILLNESS: PAIN THE PATIENT DESCRIBES THE PAIN... 66 YEAR OLD MALE PATIENT WITH HISTORY OF CHRONIC LOW BACK PAIN. PATIENT DESCRIBES THE PAIN STABBING AND SHOOTING WITH A PAIN SCORE OF 4/10. HAD LEFT LUMBAR FACET BLOCK L4-L5 L5-S1 DIAGNOSTIC TEST #1; WHICH WAS DONE ON 03/12/2017. PATIENT STATES PRE PROCEDURAL PAIN WAS 5/10. POST PROCEDURE PAIN WAS 1-2/10, WHICH DECREASED THE HOURS WENT ON. AFTER 7 HOURS AFTER THE PROCEDURE THE PAIN STARTED TO COME BACK TO WHERE THE PATIENT HAD TO TAKE THEIR MEDICATION TO AIDE IN THE PAIN RELIEF. DR. JACOBS AND THE PATIENT AGREED THAT THE DIAGNOSTIC TEST WENT WELL AND WANTS TO GO FURTHER AND HAVE THE SECOND DIAGNOSTIC TEST DONE TO THEN GO AND HAVE A RADIOFREQUENCY DONE. REVIEWED MRI L/S SPINE DONE IN JULY 2015. THIS IS SHOWING HERNIATION AT L1/2 AND SEVERE HERNIATION AT L5/S1. PAIN HAS BEEN DISABLING. 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 USING 1 PILL OF HYDROCODONE 5/325 2-3 X PER DAY AND FINDS THIS EFFECTIVE BUT HE FEARS ADDICTION. DISCUSSED MEDICATION AND TREATMENT OPTIONS AT LENGTH; AND PATIENT WANTS TO MOVE ON AND DO THE DIAGNOSTIC TEST #2. DENIES BOWEL AND BLADDER INCONTINENCE. FALL RISK SCREENING: SCREENING :NO FALLS IN THE PAST YEAR CURRENT MEDICATIONS TAKING OMEPRAZOLE 20MG _ TABLET ORAL ONCE DAILY TAKING FISH OIL 1000 MG CAPSULE 1 CAPSULE ORALLY TWICE A DAY TAKING AMLODIPINE BESYLATE 10 MG TABLET 1 TABLET ORALLY ONCE A DAY TAKING METOPROLOL SUCCINATE ER 25 MG TABLET EXTENDED RELEASE 24 HOUR 1 TABLET ORALLY ONCE A DAY TAKING TRAVATAN 1 GTT EACH EYE TWICE DAILY TAKING ROSUVASTATIN CALCIUM 5 MG TABLET 1 TABLET ORALLY ONCE A DAY TAKING NORCO 5-325 MG TABLET 1 TABLET NEEDED ORALLY Q8H PRN MDD3 TAKING LISINOPRIL-HYDROCHLOROTHIAZIDE 20-12.5 MG TABLET 1 TABLET ORALLY ONCE A DAY TAKING CELEBREX 200 MG CAPSULE 1 CAPSULE WITH FOOD ORALLY ONCE A DAY TAKING ALEVE 220 MG CAPSULE 2 TABS ORALLY TWICE A DAY NEEDED MEDICATION LIST REVIEWED AND RECONCILED WITH THE PATIENT PAST MEDICAL HISTORY HIGH BLOOD PRESSURE REFLUX GLAUCOMA REVIEW OF SYSTEMS REVIEWED BY: PROVIDER: SAURABH JACOBS MD . CONSTITUTIONAL: ANY CHANGE IN YOUR MEDICAL CONDITION? NO . CHILLS NO . FEVER NO . INFECTION: DO YOU HAVE NEW INFECTIONS? NO . DO YOU HAVE HISTORY OF MRSA? NO . MUSCULOSKELETAL: ANY NEW PATTERNS OF PAIN OR NUMBNESS? NO . GASTROENTEROLOGY: ANY NEW CHANGE IN BOWEL CONTROL? NO . GENITOURINARY: ANY NEW CHANGE IN BLADDER CONTROL? NO . IS THERE A CHANCE YOU COULD BE ? NO . HEMATOLOGY/LYMPH: DO YOU TAKE ANY BLOOD THINNERS? (FOR EXAMPLE- COUMADIN, PLAVIX, AGGRENOX, PLATEL, PRADAXA, OR XARELTO) NO . WHEN WAS YOUR LAST DOSE? DATE: TIME: . NEUROLOGY: HAVE YOU FALLEN IN THE PAST 6 MONTHS? NO . ANY NEW EXTREMITY NUMBNESS OR WEAKNESS? NO . CARDIOLOGY: DO YOU HAVE A PACEMAKER OR DEFIBRILLATOR? YES . RESPIRATORY: HAVE YOU BEEN SICK IN THE PAST WEEK? NO . FEVER NO . FLU LIKE SYMPTOMS? NO . COUGH NO . INTEGUMENTARY: DO YOU HAVE ANY RASHES OR OPEN SORES? NO . ALLERGIC/IMMUNO: ARE YOU ALLERGIC TO SHELLFISH OR IV DYE? NO . ANY NEW ALLERGIES? NO . PSYCHIATRIC: DO YOU HAVE THOUGHTS OF HURTING YOURSELF OR SOMEONE ELSE? NO . ARE YOU ABUSED, NEGLECTED, OR IN AN UNSAFE ENVIRONMENT? NO . ENDOCRINOLOGY: ARE YOU DIABETIC? NO . OTHER: DO YOU NEED ANY PRESCRIPTIONS? YES . IF YES, PLEASE LIST: ____ . ANY NEW PROBLEMS WITH YOUR MEDICATIONS? NO . WHEN DID YOU LAST EAT? ____ . WHEN DID YOU LAST DRINK? ____ . WHAT DID YOU LAST DRINK? ____ . NAME OF PERSON DRIVING YOU HOME? ____ . DO YOU HAVE ANY OTHER QUESTIONS OR CONCERNS NO . VITAL SIGNS WT 175 LBS, HT 69 IN, BMI 25.84 INDEX, BP 129/92 MM HG, HR 64 /MIN, RR 18 /MIN, TEMP 97.4 F, OXYGEN SAT % 98%, NA INITIALS SC 13:36, REVIEWED BY: KG. EXAMINATION : PATIENT IS ALERT O X 3 AND COOPERATIVE. TENDERNESS IN THE LOWER BACK AND PARASPINAL MUSCLE GROUP. THERE IS ALSO TENDERNESS OVER THE FACET JOINTS OF L4-L5 AND L5-S1. URINE TOX WILL BE DONE TODAY. 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 VELEZ'' PAIN MANAGEMENT CASE. PATIENT HAS ADEQUATE RELIEF FROM THE FIRST DIAGNOSTIC TEST DONE ON 03/12/17. PATIENT HAD OVER 50% RELIEF FROM THE INJECTION FOR OVER 8 HOURS AND AT THIS TIME WOULD LIKE TO MOVE FORWARD WITH A SECOND DIAGNOSTIC TEST. PATIENT IS AWARE HE WILL HAVE TO HAVE ADEQUATE RESULTS FROM THE SECOND DIAGNOSTIC TEST TO PROCEED WITH THE RADIOFREQUENCY. PATIENT WILL NEED TO GET CLEARANCE FROM HIS MILK TESTER IN ORDER TO HAVE THE RADIOFREQUENCY DONE DUE TO HAVING A PACEMAKER. PATIENT ALSO TOOK A URINE TOXICOLOGY TODAY. PATIENT WILL FOLLOW UP WITH CHELLE [facility]SI[facility] IN ONE MONTH FOR HIS MEDICATIONS AND WE WILL WAIT TO BOOK THE 2ND DIAGNOSTIC TEST AFTER BEING APPROVED RICA MARCELO DOCUMENTED THE ABOVE INFORMATION ACTING A HOUSEKEEPING SUPERVISOR FOR DR. JACOBS. I HAVE REVIEWED THE ABOVE DOCUMENT WRITTEN BY RICA GRADYIBSushma AND I VERIFY THAT IT IS ACCURATE. OTHERS REFILL NORCO TABLET, 5-325 MG, 1 TABLET NEEDED, ORALLY FOR PAIN, Q8H PRN MDD3, 30 DAY(S), 80, REFILLS 0 PROCEDURE CODES FA211 ESTABILISHED PATIENT [facility] FACILITY CHARGE 92448 OFFICE/OUTPATIENT VISIT EST G8427 DOC MEDS VERIFIED W/PT OR RE G8730 PAIN ASSESS POS TOOL F/U PLAN DOC DISPOSITION & COMMUNICATION FOLLOW UP 4 WEEKS ELECTRONICALLY SIGNED BY SAURABH JACOBS MD ON 04/01/2017 AT 03:27 PM EDT DISCLAIMER : THIS IS A VISIT SUMMARY EXTRACTED FROM THE [email or web address] CHART. IT IS NOT A COPY OF THE [email or web address] PROGRESS NOTE. MTDD
== END ==
LOC: M PAIN 14:00
PROVIDERS: ATTEND Anesthesiology
DX: M47.816 Spondylosis without myelopathy or radiculopathy, lumbar region (principal); M47.817 Spondylosis without myelopathy or radiculopathy, lumbosacral region; M54.5 Low back pain; G89.29 Other chronic pain; M79.1 Myalgia; I10 Essential (primary) hypertension; K21.9 Gastro-esophageal reflux disease without esophagitis; Z79.899 Other long term (current) drug therapy; Z79.891 Long term (current) use of opiate analgesic

== ENCOUNTER → 2017-04-15 | Outpatient (CLI) | payer OTHER ==
--- NOTE | 2017-04-15 12:45 | REP ---
Partial lumbar spine series: Three views . History: Injection procedure for pain. 48 seconds of fluoroscopy time is reported. Findings: A sequence of three fluoroscopically obtained last image hold procedural spot radiographs of the lumbar spine document needle position and contrast injection associated with injection procedure. Signed by Shahab Barba MD 04/15/2017 12:38 P
--- NOTE | 2017-04-16 00:17 | ECWPNPC ---
PATIENT NAME: JUAN VELEZ : 1950 GENDER: MALE VISIT DATE: 04/15/2017 DISCHARGE DATE: 04/15/17 1226 VISIT LOCKED DATE TIME: PHYSICIAN: SAURABH JACOBS RESOURCE: SAURABH JACOBS REASON FOR APPOINTMENT 1. LFBD HISTORY OF PRESENT ILLNESS HISTORY OF PRESENT ILLNESS: PAIN THE PATIENT DESCRIBES THE PAIN... FALL RISK SCREENING: SCREENING :NO FALLS IN THE PAST YEAR CURRENT MEDICATIONS TAKING OMEPRAZOLE 20MG _ TABLET ORAL ONCE DAILY, NOTES: 04/15/17629 TAKING FISH OIL 1000 MG CAPSULE 1 CAPSULE ORALLY TWICE A DAY, NOTES: 04/15/17629 TAKING AMLODIPINE BESYLATE 10 MG TABLET 1 TABLET ORALLY ONCE A DAY, NOTES: 04/14/171829 TAKING METOPROLOL SUCCINATE ER 25 MG TABLET EXTENDED RELEASE 24 HOUR 1 TABLET ORALLY ONCE A DAY, NOTES: 04/15/17629 TAKING TRAVATAN 1 GTT EACH EYE TWICE DAILY, NOTES: 04/14/171829 TAKING ROSUVASTATIN CALCIUM 5 MG TABLET 1 TABLET ORALLY ONCE A DAY, NOTES: 04/14/171829 TAKING LISINOPRIL-HYDROCHLOROTHIAZIDE 20-12.5 MG TABLET 1 TABLET ORALLY ONCE A DAY, NOTES: 04/15/17629 TAKING CELEBREX 200 MG CAPSULE 1 CAPSULE WITH FOOD ORALLY ONCE A DAY, NOTES: 04/12/17 TAKING ALEVE 220 MG CAPSULE 2 TABS ORALLY TWICE A DAY NEEDED, NOTES: NONE LATELY TAKING NORCO 5-325 MG TABLET 1 TABLET NEEDED ORALLY FOR PAIN Q8H PRN MDD3, NOTES: 04/12/17 MEDICATION LIST REVIEWED AND RECONCILED WITH THE PATIENT PAST MEDICAL HISTORY HIGH BLOOD PRESSURE REFLUX GLAUCOMA ALLERGIES N.K.D.A. SURGICAL HISTORY PACEMAKER 04/2016 HOSPITALIZATION/MAJOR DIAGNOSTIC PROCEDURE GASTRITIS 2013 REVIEW OF SYSTEMS REVIEWED BY: PROVIDER: . CONSTITUTIONAL: ANY CHANGE IN YOUR MEDICAL CONDITION? NO . CHILLS NO . FEVER NO . INFECTION: DO YOU HAVE NEW INFECTIONS? NO . DO YOU HAVE HISTORY OF MRSA? NO . MUSCULOSKELETAL: ANY NEW PATTERNS OF PAIN OR NUMBNESS? NO . GASTROENTEROLOGY: ANY NEW CHANGE IN BOWEL CONTROL? NO . GENITOURINARY: ANY NEW CHANGE IN BLADDER CONTROL? NO . IS THERE A CHANCE YOU COULD BE ? NO . HEMATOLOGY/LYMPH: DO YOU TAKE ANY BLOOD THINNERS? (FOR EXAMPLE- COUMADIN, PLAVIX, AGGRENOX, PLATEL, PRADAXA, OR XARELTO) NO . WHEN WAS YOUR LAST DOSE? DATE: TIME: . NEUROLOGY: HAVE YOU FALLEN IN THE PAST 6 MONTHS? NO . ANY NEW EXTREMITY NUMBNESS OR WEAKNESS? NO . CARDIOLOGY: DO YOU HAVE A PACEMAKER OR DEFIBRILLATOR? YES, PACEMAKER . RESPIRATORY: HAVE YOU BEEN SICK IN THE PAST WEEK? NO . FEVER NO . FLU LIKE SYMPTOMS? NO . COUGH NO . INTEGUMENTARY: DO YOU HAVE ANY RASHES OR OPEN SORES? NO . ALLERGIC/IMMUNO: ARE YOU ALLERGIC TO SHELLFISH OR IV DYE? NO . ANY NEW ALLERGIES? NO . PSYCHIATRIC: DO YOU HAVE THOUGHTS OF HURTING YOURSELF OR SOMEONE ELSE? NO . ARE YOU ABUSED, NEGLECTED, OR IN AN UNSAFE ENVIRONMENT? NO . ENDOCRINOLOGY: ARE YOU DIABETIC? NO . OTHER: DO YOU NEED ANY PRESCRIPTIONS? NO . IF YES, PLEASE LIST: ____ . ANY NEW PROBLEMS WITH YOUR MEDICATIONS? NO . WHEN DID YOU LAST EAT? 04/14/17 1830 . WHEN DID YOU LAST DRINK? 04/15/17 0630 . WHAT DID YOU LAST DRINK? WATER . NAME OF PERSON DRIVING YOU HOME? IZABELA WHITEHEAD . DO YOU HAVE ANY OTHER QUESTIONS OR CONCERNS NO . VITAL SIGNS WT 170 LBS, HT 69 IN, BMI 25.10 INDEX, BP 167/99 MM HG, HR 76 /MIN, RR 18 /MIN, TEMP 98.1 F, OXYGEN SAT % 93%, NA INITIALS AW 1008, REVIEWED BY: LS. ASSESSMENTS SPONDYLOSIS OF LUMBAR REGION WITHOUT MYELOPATHY OR RADICULOPATHY - M47.816 (PRIMARY) SPONDYLOSIS OF LUMBOSACRAL REGION WITHOUT MYELOPATHY OR RADICULOPATHY - M47.817 PROCEDURES PN LUMBAR FACET BLOCK DIAGNOSTIC PRE PROCEDURE DIAGNOSIS LUMBAR SPONDYLOSIS, LUMBOSACRAL SPONDYLOSIS POST PROCEDURE DIAGNOSIS LUMBAR SPONDYLOSIS, LUMBOSACRAL SPONDYLOSIS PROCEDURE LEFT L4-L5 AND LEFT L5-S1 FACET BLOCK DIAGNOSTIC NUMBER [address] SAURABH JACOBS ONCOLOGY PHYSICIAN ASSISTANT NONE ANESTHESIA LOCAL PRE PROCEDURE NOTE THE PATIENT WITH HISTORY OF CHRONIC LOW BACK PAIN. I EVALUATED THE PATIENT AND REVIEWED THE CHART. I WENT OVER THE RISKS, ALTERNATIVES, AND BENEFITS ASSOCIATED WITH THIS PROCEDURE. THE PATIENT WOULD LIKE TO PROCEED AND GAVE CONSENT TO PERFORM THE PROCEDURE. AGREED WITH THE PATIENT WE ARE DOING THIS PROCEDURE TO DETERMINE IF THE PATIENT IS A CANDIDATE FOR A RADIOFREQUENCY ABLATION OF THE FACETS JOINTS. THE PATIENT DENIES UNEXPLAINABLE WEIGHT LOSS, FEVER, CHILLS, OR NEW CHANGES IN URINARY OR BOWEL CONTROL DESCRIPTION OF PROCEDURE THE PATIENT WAS BROUGHT TO THE PROCEDURE ROOM AND PLACED IN THE PRONE POSITION. THE LUMBOSACRAL AREA WAS CLEANED WITH CHLORAPREP SOLUTION AND DRAPED ASEPTICALLY. THE PROCEDURE WAS DONE UNDER STERILE CONDITIONS. I CHECKED LATERALITY AND THE LEVEL WHERE THE PROCEDURE WAS GOING TO BE PERFORMED WITH THE PATIENT AND THE SUPPORTING STAFF AT THE MOMENT OF THE TIME OUT IN THE PROCEDURE ROOM. UNDER FLUOROSCOPIC GUIDANCE, TARGETS WERE SELECTED AT THE INTERSECTION OF THE LEFT TRANSVERSE PROCESS OF L4, L5 AND ALA OF S1 WITH ITS RESPECTIVE SUPERIOR ARTICULAR PROCESS. LIDOCAINE WAS USED TO NUMB THE SKIN AND THE SUBCUTANEOUS TISSUE BELOW IT. SPINAL NEEDLE, 22-GAUGE WAS ADVANCED UNDER FLUOROSCOPIC GUIDANCE AND FOLLOWING PATIENT FEEDBACK UNTIL THE TARGETS WERE REACHED. POSITION OF THE NEEDLES WAS VERIFIED WITH AP AND LATERAL VIEWS. AFTER PROPER POSITION OF THE NEEDLES WAS ACHIEVED, ISOVUE-M DYE 30% 0.1 ML WAS INJECTED AT EACH SITE SHOWING ADEQUATE SPREAD OF THE DYE. THEN A SOLUTION OF 0.4 ML OF BUPIVACAINE 0.25% WAS INJECTED AT EACH SITE. THERE WAS NO EVIDENCE OF BLOOD, PARESTHESIA OR CEREBROSPINAL FLUID DURING THE PROCEDURE. THE PATIENT WAS SENT TO THE RECOVERY ROOM. THE PATIENT WAS MOVING THE EXTREMITIES AND DOING WELL. THERE WAS NO COMPLICATION DURING THE PROCEDURE. FLUOROSCOPY TIME WAS 38 SECONDS POST PROCEDURE NOTE THE PATIENT WILL DOCUMENT HIS PAIN LEVEL AND RESPONSE TO THIS PROCEDURE EVERY 30 MINUTES. THE PATIENT WILL BE SEEN IN A FOLLOW UP IN THE NEXT FEW WEEKS. FURTHER DETERMINATION FOR HIS CASE WILL BE DONE AT THE NEXT VISIT. INSTRUCTIONS WERE GIVEN, QUESTIONS WERE ANSWERED, AND THE PATIENT EXPRESSED UNDERSTANDING AND AGREED WITH THE PLAN. I, PIA ECHOLS, DOCUMENTED THE ABOVE INFORMATION ACTING A SCRIBE FOR DR. JACOBS. I HAVE REVIEWED THE ABOVE DOCUMENT, WRITTEN BY PIA GOMES AND I VERIFY THAT IT IS ACCURATE DIAGNOSTIC IMAGING [facility] FACET BLOCK (PAIN)[id number] PROCEDURE CODES 34652 INJ PARAVERT F JNT L/S 1 LEV 97949 INJ PARAVERT F JNT L/S 2 LEV 6045F RADXPS IN END [id number] PXD DISPOSITION & COMMUNICATION ELECTRONICALLY SIGNED BY SAURABH JACOBS MD ON 04/15/2017 AT 09:16 PM EDT DISCLAIMER : THIS IS A VISIT SUMMARY EXTRACTED FROM THE [email or web address] CHART. IT IS NOT A COPY OF THE [email or web address] PROGRESS NOTE. REY
== END ==
LOC: M PAIN 10:45
PROVIDERS: ATTEND Anesthesiology
DX: G89.29 Other chronic pain (principal); M47.816 Spondylosis without myelopathy or radiculopathy, lumbar region; M47.817 Spondylosis without myelopathy or radiculopathy, lumbosacral region; M54.5 Low back pain; I10 Essential (primary) hypertension; K21.9 Gastro-esophageal reflux disease without esophagitis; Z79.891 Long term (current) use of opiate analgesic; Z79.899 Other long term (current) drug therapy; Z95.0 Presence of cardiac pacemaker
CPT/HCPCS: 64493; 64494; Q9967

== ENCOUNTER → 2017-04-18 | Outpatient (CLI) | payer OTHER ==
--- NOTE | 2017-05-08 00:54 | ECWPNPC ---
PATIENT NAME: JUAN VELEZ : 1950 GENDER: MALE VISIT DATE: 04/18/2017 DISCHARGE DATE: 04/18/17920 VISIT LOCKED DATE TIME: PHYSICIAN: CHELLE HSIEH RESOURCE: CHELLE HSIEH REASON FOR APPOINTMENT 1. MEDS HISTORY OF PRESENT ILLNESS HISTORY OF PRESENT ILLNESS: PAIN THE PATIENT DESCRIBES THE PAIN... THE PATIENT DESCRIBES THE PAIN... THE PATIENT DESCRIBES THE PAIN... HERE F/U.HAD LEFT L4/5-L5/S1 DIAGNOSTIC BLOCK #2 ON 04-15-17. 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 JACOBS AND MIREYA VIVAS ARE PRESENT TO COME UP WITH PLAN TO MOVE FORWARD WITH RADIOFREQUENCY.RADIOFREQUENCY APPROVAL WILL BE SOUGHT BY POOJA AND SHE WILL HELP COORDINATE PROCESS. FALL RISK SCREENING: SCREENING :NO FALLS IN THE PAST YEAR CURRENT MEDICATIONS TAKING OMEPRAZOLE 20MG _ TABLET ORAL ONCE DAILY TAKING FISH OIL 1000 MG CAPSULE 1 CAPSULE ORALLY TWICE A DAY TAKING AMLODIPINE BESYLATE 10 MG TABLET 1 TABLET ORALLY ONCE A DAY TAKING METOPROLOL SUCCINATE ER 25 MG TABLET EXTENDED RELEASE 24 HOUR 1 TABLET ORALLY ONCE A DAY TAKING TRAVATAN 1 GTT EACH EYE TWICE DAILY TAKING ROSUVASTATIN CALCIUM 5 MG TABLET 1 TABLET ORALLY ONCE A DAY TAKING LISINOPRIL-HYDROCHLOROTHIAZIDE 20-12.5 MG TABLET 1 TABLET ORALLY ONCE A DAY TAKING CELEBREX 200 MG CAPSULE 1 CAPSULE WITH FOOD ORALLY ONCE A DAY TAKING ALEVE 220 MG CAPSULE 2 TABS ORALLY TWICE A DAY NEEDED TAKING NORCO 5-325 MG TABLET 1 TABLET NEEDED ORALLY FOR PAIN Q8H PRN MDD3 MEDICATION LIST REVIEWED AND RECONCILED WITH THE PATIENT PAST MEDICAL HISTORY HIGH BLOOD PRESSURE REFLUX GLAUCOMA ALLERGIES N.K.D.A. SOCIAL HISTORY GENERAL: TOBACCO USE ARE YOU A:NONSMOKER ALCOHOL SCREENING POINTS1 INTERPRETATIONNEGATIVE RECREATIONAL DRUG USE DRUG USE?YES HOW OFTEN AND HOW MUCH? USED ONE MONTH AGO CAFFEINE CAFFEINE USE?YES HOW OFTEN AND HOW MUCH? DAILY PAIN CLINIC PFS, CLERGY, PUBLIC HEALTH REFERRALS PFS REFERRAL NEEDED?NO CLERGY REFERRAL NEEDED?NO PUBLIC HEALTH REFERRAL NEEDED?NO WAS THE PROVIDER NOTIFIED OF ANY PERTINENT INFO?NO HAS THE PATIENT BEEN EDUCATED REGARDING HIS/HER PLAN OF CARE?YES HAS THE PATIENT BEEN EDUCATED REGARDING PAIN, THE RISK FOR PAIN, THE IMPORTANCE OF EFFECTIVE PAIN MANAGEMENT, AND THE PAIN ASSESSMENT PROCESS?YES PATIENT: ____. REVIEW OF SYSTEMS REVIEWED BY: PROVIDER: CHELLE LEIVA . CONSTITUTIONAL: ANY CHANGE IN YOUR MEDICAL CONDITION? NO . CHILLS NO . FEVER NO . INFECTION: DO YOU HAVE NEW INFECTIONS? NO . DO YOU HAVE HISTORY OF MRSA? NO . MUSCULOSKELETAL: ANY NEW PATTERNS OF PAIN OR NUMBNESS? NO . GASTROENTEROLOGY: ANY NEW CHANGE IN BOWEL CONTROL? NO . GENITOURINARY: ANY NEW CHANGE IN BLADDER CONTROL? NO . IS THERE A CHANCE YOU COULD BE ? NO . HEMATOLOGY/LYMPH: DO YOU TAKE ANY BLOOD THINNERS? (FOR EXAMPLE- COUMADIN, PLAVIX, AGGRENOX, PLATEL, PRADAXA, OR XARELTO) NO . WHEN WAS YOUR LAST DOSE? DATE: TIME: . NEUROLOGY: HAVE YOU FALLEN IN THE PAST 6 MONTHS? NO . ANY NEW EXTREMITY NUMBNESS OR WEAKNESS? NO . CARDIOLOGY: DO YOU HAVE A PACEMAKER OR DEFIBRILLATOR? YES, BOTH . RESPIRATORY: HAVE YOU BEEN SICK IN THE PAST WEEK? NO . FEVER NO . FLU LIKE SYMPTOMS? NO . COUGH NO . INTEGUMENTARY: DO YOU HAVE ANY RASHES OR OPEN SORES? NO . ALLERGIC/IMMUNO: ARE YOU ALLERGIC TO SHELLFISH OR IV DYE? NO . ANY NEW ALLERGIES? NO . PSYCHIATRIC: DO YOU HAVE THOUGHTS OF HURTING YOURSELF OR SOMEONE ELSE? NO . ARE YOU ABUSED, NEGLECTED, OR IN AN UNSAFE ENVIRONMENT? NO . ENDOCRINOLOGY: ARE YOU DIABETIC? NO . OTHER: DO YOU NEED ANY PRESCRIPTIONS? NO . IF YES, PLEASE LIST: ____ . ANY NEW PROBLEMS WITH YOUR MEDICATIONS? NO . WHEN DID YOU LAST EAT? ____ . WHEN DID YOU LAST DRINK? ____ . WHAT DID YOU LAST DRINK? ____ . NAME OF PERSON DRIVING YOU HOME? ____ . DO YOU HAVE ANY OTHER QUESTIONS OR CONCERNS YES, VERY PLEASED WITH HOW MUCH BETTER HE FEELS. HOPES THE RADIOFREQUENCY WORKS . VITAL SIGNS WT 170 LBS, HT 69 IN, BMI 25.10 INDEX, BP 141/86 MM HG, HR 64 /MIN, RR 18 /MIN, TEMP 98 F, OXYGEN SAT % 97%, NA INITIALS CM 0854. EXAMINATION GENERAL EXAMINATION: LUNGS:LUNG SOUNDS ARE CLEAR. HEART:HEART RATE REGULAR. MUSCULOSKELETAL:*, MUSCLE STRENGTH TESTING 5/5 BILATERAL LOWER EXTREMITIES., PALPATION: POSITIVE FOR PAIN OVER LEFT L4/5-L5/S1 FACET. POSITIVE FOR PAIN OVER LEFT L/S PARASPINALS.. DIAGNOSTIC:MRI L/S [id number]--REVIEWED.. ASSESSMENTS INTERVERTEBRAL DISC DISORDERS WITH RADICULOPATHY, LUMBAR REGION - M51.16 (PRIMARY) MYOFASCIAL PAIN - M79.1 TREATMENT INTERVERTEBRAL DISC DISORDERS WITH RADICULOPATHY, LUMBAR REGION CONTINUE NORCO TABLET, 5-325 MG, 1 TABLET NEEDED, ORALLY FOR PAIN, Q8H PRN MDD3 NOTES: REQUEST LEFT L4/5-L5/S1 RADIOFREQUENCY INSURANCE. PROCEDURE CODES FA211 ESTABILISHED PATIENT [facility] CHARGE DISPOSITION & COMMUNICATION FOLLOW UP 2 WEEKS ELECTRONICALLY SIGNED BY ABBIE SANCHEZ ON 05/07/2017 AT 08:06 PM EDT DISCLAIMER : THIS IS A VISIT SUMMARY EXTRACTED FROM THE [employer] CHART. IT IS NOT A COPY OF THE [employer] PROGRESS NOTE. REY
== END ==
LOC: M PAIN 08:30
PROVIDERS: ATTEND Nurse Practitioner Family
DX: M51.16 Intervertebral disc disorders with radiculopathy, lumbar region (principal); M79.1 Myalgia; I10 Essential (primary) hypertension; K21.9 Gastro-esophageal reflux disease without esophagitis; Z79.891 Long term (current) use of opiate analgesic; Z79.899 Other long term (current) drug therapy

== ENCOUNTER → 2017-05-02 | Outpatient (CLI) | payer OTHER ==
--- NOTE | 2017-05-21 01:30 | ECWPNPC ---
PATIENT NAME: JUAN VELEZ : 1950 GENDER: MALE VISIT DATE: 05/02/2017 DISCHARGE DATE: 05/02/17 0000 VISIT LOCKED DATE TIME: PHYSICIAN: CHELLE HSIEH RESOURCE: CHELLE HSIEH REASON FOR APPOINTMENT 1. BACK HISTORY OF PRESENT ILLNESS HISTORY OF PRESENT ILLNESS: PAIN THE PATIENT DESCRIBES THE PAIN... THE PATIENT DESCRIBES THE PAIN... THE PATIENT DESCRIBES THE PAIN... THE PATIENT DESCRIBES THE PAIN... HERE FOR F/U.HAD LEFT L4/5-L5/S1 DIAGNOSTIC BLOCK #2 ON 04-15-17. 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 JACOBS.DR. JACOBS AND HIS SCRIBE PIA ECHOLS WERE BROUGHT TO ROOM TO DISCUSS SITUATION WITH PATIENT.DR. JACOBS IS GOING TOTRY TO MOVE THIS ALONG ALTHOUGH HE INFORMED PATIENTAND HIS THAT HE DIDNT FEELCOMFORTABLE SHUTTING OFF PACER WITHOUT CARDIOLOGY ON STANDBY IN PROCEDURE AREA.THIS MAY TAKE SOME PLANNING THAT REQUIRES TIME. FALL RISK SCREENING: SCREENING :NO FALLS IN THE PAST YEAR CURRENT MEDICATIONS UNKNOWN OMEPRAZOLE 20MG _ TABLET ORAL ONCE DAILY UNKNOWN FISH OIL 1000 MG CAPSULE 1 CAPSULE ORALLY TWICE A DAY UNKNOWN AMLODIPINE BESYLATE 10 MG TABLET 1 TABLET ORALLY ONCE A DAY UNKNOWN METOPROLOL SUCCINATE ER 25 MG TABLET EXTENDED RELEASE 24 HOUR 1 TABLET ORALLY ONCE A DAY UNKNOWN TRAVATAN 1 GTT EACH EYE TWICE DAILY UNKNOWN ROSUVASTATIN CALCIUM 5 MG TABLET 1 TABLET ORALLY ONCE A DAY UNKNOWN LISINOPRIL-HYDROCHLOROTHIAZIDE 20-12.5 MG TABLET 1 TABLET ORALLY ONCE A DAY UNKNOWN CELEBREX 200 MG CAPSULE 1 CAPSULE WITH FOOD ORALLY ONCE A DAY UNKNOWN ALEVE 220 MG CAPSULE 2 TABS ORALLY TWICE A DAY NEEDED UNKNOWN NORCO 5-325 MG TABLET 1 TABLET NEEDED ORALLY FOR PAIN Q8H PRN MDD3 MEDICATION LIST REVIEWED AND RECONCILED WITH THE PATIENT PAST MEDICAL HISTORY HIGH BLOOD PRESSURE REFLUX GLAUCOMA ALLERGIES N.K.D.A. SURGICAL HISTORY PACEMAKER 04/2016 HOSPITALIZATION/MAJOR DIAGNOSTIC PROCEDURE GASTRITIS 2012 REVIEW OF SYSTEMS REVIEWED BY: PROVIDER: CHELLE HSIEH [place] OF [place] . CONSTITUTIONAL: ANY CHANGE IN YOUR MEDICAL CONDITION? NO . CHILLS NO . FEVER NO . INFECTION: DO YOU HAVE NEW INFECTIONS? NO . DO YOU HAVE HISTORY OF MRSA? NO . MUSCULOSKELETAL: ANY NEW PATTERNS OF PAIN OR NUMBNESS? NO . GASTROENTEROLOGY: ANY NEW CHANGE IN BOWEL CONTROL? NO . GENITOURINARY: ANY NEW CHANGE IN BLADDER CONTROL? NO . IS THERE A CHANCE YOU COULD BE ? NO . HEMATOLOGY/LYMPH: DO YOU TAKE ANY BLOOD THINNERS? (FOR EXAMPLE- COUMADIN, PLAVIX, AGGRENOX, PLATEL, PRADAXA, OR XARELTO) NO . WHEN WAS YOUR LAST DOSE? DATE: TIME: . NEUROLOGY: HAVE YOU FALLEN IN THE PAST 6 MONTHS? NO . ANY NEW EXTREMITY NUMBNESS OR WEAKNESS? NO . CARDIOLOGY: DO YOU HAVE A PACEMAKER OR DEFIBRILLATOR? YES . RESPIRATORY: HAVE YOU BEEN SICK IN THE PAST WEEK? NO . FEVER NO . FLU LIKE SYMPTOMS? NO . COUGH NO . INTEGUMENTARY: DO YOU HAVE ANY RASHES OR OPEN SORES? NO . ALLERGIC/IMMUNO: ARE YOU ALLERGIC TO SHELLFISH OR IV DYE? NO . ANY NEW ALLERGIES? NO . PSYCHIATRIC: DO YOU HAVE THOUGHTS OF HURTING YOURSELF OR SOMEONE ELSE? NO . ARE YOU ABUSED, NEGLECTED, OR IN AN UNSAFE ENVIRONMENT? NO . ENDOCRINOLOGY: ARE YOU DIABETIC? NO . OTHER: DO YOU NEED ANY PRESCRIPTIONS? YES . IF YES, PLEASE LIST: HYDROCODONE . ANY NEW PROBLEMS WITH YOUR MEDICATIONS? NO . WHEN DID YOU LAST EAT? ____ . WHEN DID YOU LAST DRINK? ____ . WHAT DID YOU LAST DRINK? ____ . NAME OF PERSON DRIVING YOU HOME? ____ . DO YOU HAVE ANY OTHER QUESTIONS OR CONCERNS NO . VITAL SIGNS WT 177.8 LBS, HT 69 IN, BMI 26.25 INDEX, BP 103/75 MM HG, HR 62 /MIN, RR 18 /MIN, TEMP 98 F, OXYGEN SAT % 97, REVIEWED BY: NL. EXAMINATION GENERAL EXAMINATION: LUNGS:LUNG SOUNDS ARE CLEAR. HEART:HEART RATE REGULAR. MUSCULOSKELETAL:*, MUSCLE STRENGTH TESTING 5/5 BILATERAL LOWER EXTREMITIES., PALPATION: POSITIVE FOR PAIN OVER LEFT L4/5-L5/S1 FACET. POSITIVE FOR PAIN OVER LEFT L/S PARASPINALS.. DIAGNOSTIC:MRI L/S [id number]-REVIEWED.. ASSESSMENTS INTERVERTEBRAL DISC DISORDERS WITH RADICULOPATHY, LUMBAR REGION - M51.16 (PRIMARY) MYOFASCIAL PAIN - M79.1 CHRONIC PRESCRIPTION OPIATE USE - Z79.891 TREATMENT INTERVERTEBRAL DISC DISORDERS WITH RADICULOPATHY, LUMBAR REGION CONTINUE NORCO TABLET, 5-325 MG, 1 TABLET NEEDED, ORALLY FOR PAIN, Q8H PRN MDD3, 30 DAY(S), 60, REFILLS 0 OTHERS NOTES: REQUEST LEFT L4/5-L5/S1 RADIOFREQUENCY , ISTOP REGISTRY REVIEWED [id number] RISKS AND BENEFITS OF NARCOTIC/OPIOD MEDICATIONS WERE REVIEWED WITH PATIENT - THIS INCLUDES BUT IS NOT LIMITED TO RISK OF DEPENDANCE/DEVELOPMENT OF ADDICTION, MOOD DISTURBANCE AND DEPRESSION, OSTEOPOROSIS, HORMONAL AND LABIDAL CHANGES, RESPIRATORY DEPRESSION AND . PATIENT IS ADVISED NOT TO DRIVE WHILE ON THESE MEDICATIONS, AND DEMNOSTRATES COMPLLIANCE. BRINGS IN MEDICATIONS WHICH IS APPROPRIATE FOR WHAT WAS DISPENSED. RECENT URINE TOXICOLOGY REVIEWED. NO UNAUTHORIZED MEDICATIONS. NO ILLICIT SUBSTANCES AND PRESCRIBED MEDICATIONS WERE PRESENT. PROCEDURE CODES FA211 ESTABILISHED PATIENT [facility] CHARGE DISPOSITION & COMMUNICATION FOLLOW UP 2WK POST (REASON: REQUEST L4/5-L5/S1 RADIOFREQUENCY ) ELECTRONICALLY SIGNED BY ABBIE SANCHEZ ON 05/20/2017 AT 07:39 AM EDT DISCLAIMER : THIS IS A VISIT SUMMARY EXTRACTED FROM THE [employer] CHART. IT IS NOT A COPY OF THE [employer] PROGRESS NOTE. MTDD
== END ==
LOC: M PAIN 09:30
PROVIDERS: ATTEND Nurse Practitioner Family
DX: M51.16 Intervertebral disc disorders with radiculopathy, lumbar region (principal); M79.1 Myalgia; I10 Essential (primary) hypertension; K21.9 Gastro-esophageal reflux disease without esophagitis; Z79.891 Long term (current) use of opiate analgesic; Z79.899 Other long term (current) drug therapy; Z95.0 Presence of cardiac pacemaker

== ENCOUNTER → 2017-07-16 | Outpatient (CLI) | payer OTHER | LOC: M PAIN 08:30 | DX: M51.16 Intervertebral disc disorders with radiculopathy, lumbar region (principal); M79.1 Myalgia; I10 Essential (primary) hypertension; K21.9 Gastro-esophageal reflux disease without esophagitis; Z79.891 Long term (current) use of opiate analgesic; Z79.899 Other long term (current) drug therapy; Z95.0 Presence of cardiac pacemaker | CPT/HCPCS: G0463 ==

== ENCOUNTER → 2017-07-24 | Outpatient (CLI) | payer OTHER ==
[~2017-07-24] MED LIST changes: +BUPIVACAINE HCL 0.25% 30 ML VIAL As Ordered; -BUPIVACAINE HCL 0.25% 30 ML VIAL As Ordered ONE; +ISOVUE-M 300 61% 15ML VIAL (Q9967) As Ordered; -ISOVUE-M 300 61% 15ML VIAL (Q9967) As Ordered ONE; +LIDOCAINE 1% SDV INJ 30 ML VIAL As Ordered; -LIDOCAINE 1% SDV INJ 30 ML VIAL As Ordered ONE; +TRIAMCINOLONE ACETONIDE SUSP 40 MG/ML VIAL (J3301) As Ordered
== END ==
LOC: M PAIN 14:00
DX: G89.29 Other chronic pain (principal); M47.816 Spondylosis without myelopathy or radiculopathy, lumbar region; M47.817 Spondylosis without myelopathy or radiculopathy, lumbosacral region; R03.0 Elevated blood-pressure reading, without diagnosis of hypertension; K21.9 Gastro-esophageal reflux disease without esophagitis; H40.9 Unspecified glaucoma; Z95.0 Presence of cardiac pacemaker; Z96.651 Presence of right artificial knee joint; Z79.891 Long term (current) use of opiate analgesic; Z79.899 Other long term (current) drug therapy
CPT/HCPCS: J3301

== ENCOUNTER → 2017-08-15 | Outpatient (CLI) | payer OTHER | LOC: M PAIN 08:30 | DX: M51.16 Intervertebral disc disorders with radiculopathy, lumbar region (principal); I10 Essential (primary) hypertension; K21.9 Gastro-esophageal reflux disease without esophagitis; Z79.899 Other long term (current) drug therapy; Z95.0 Presence of cardiac pacemaker | CPT/HCPCS: G0463 ==

== ENCOUNTER → 2017-10-14 | Outpatient (CLI) | payer OTHER | LOC: M PAIN 08:45 | DX: M51.16 Intervertebral disc disorders with radiculopathy, lumbar region (principal); G89.29 Other chronic pain; I10 Essential (primary) hypertension; K21.9 Gastro-esophageal reflux disease without esophagitis; Z79.899 Other long term (current) drug therapy; Z95.0 Presence of cardiac pacemaker; Z96.651 Presence of right artificial knee joint | CPT/HCPCS: G0463 ==

== ENCOUNTER → 2017-12-15 | Outpatient (CLI) | payer OTHER | LOC: M PAIN 08:30 | DX: M51.16 Intervertebral disc disorders with radiculopathy, lumbar region (principal); G89.29 Other chronic pain; I10 Essential (primary) hypertension; K21.9 Gastro-esophageal reflux disease without esophagitis; Z79.899 Other long term (current) drug therapy; Z95.0 Presence of cardiac pacemaker; Z96.651 Presence of right artificial knee joint | CPT/HCPCS: G0463 ==